=== PATIENT | male | born 1945 | race Caucasian/White ===

== ENCOUNTER 2021-04-09 12:14 | Observation (INO) ==
[2021-04-09] MEDS ORDERED: Isovue-370 500 ML BOTTLE IVP ONE (12:21)
[2021-04-09 13:20] LABS: Hemoglobin 11.8 g/dL (12.9-16.9)
[2021-04-09 13:22] LABS: Hematocrit 37.7 % (37.5-50.1); Immature Platelets 4.5 % (1.1-6.1); Mean Corpuscular HGB Conc 31.3 g/dL (31.6-35.5); Mean Corpuscular Hemoglobin 24.7 pg (28.0-33.3); Mean Platelet Volume 11.2 fL (9.4-12.4); Red Blood Count 4.77 M/mcL (4.19-5.50); Red Cell Distribution Width 19.2 % (11.5-14.5); White Blood Count 7.1 K/mcL (4.3-11.1)
[2021-04-09 13:33] LABS: INR 2.1; Prothrombin Time 23.4 Seconds (9.4-12.1)
[2021-04-09 13:36] LABS: Activated Partial Thrombo Time 34.4 Seconds (26.0-36.0)
[2021-04-09 13:42] LABS: BUN/Creatinine Ratio 16 (6-26); Blood Urea Nitrogen 15 mg/dL (8-23); Calcium 9.6 mg/dL (8.6-10.3); Carbon Dioxide 28 mEq/L (23-29); Chloride 103 mEq/L (98-107); Glucose 149 mg/dL (70-105); Osmolality,Calculated 288 (280-300); Potassium 3.6 mEq/L (3.5-5.1); Sodium 137 mEq/L (136-145); Troponin I < 0.03 ng/mL (< 0.04); eGFR For African Americans > 60 (> 60); eGFR For Non-African Americans > 60 (> 60)
[2021-04-09] MEDS ORDERED: Ondansetron ODT 4 MG TAB.RAPDIS SL PRN (16:30)
[2021-04-09] MEDS ORDERED: MOM Conc 10 ML UD.LIQ PO PRN (16:30)
[2021-04-09] MEDS ORDERED: Mag Hydrox/Al Hydrox/Simeth 30 ML UDC PO PRN (16:30)
[2021-04-09] MEDS ORDERED: Naloxone 0.4 MG/ML INJ IVP PRN (16:30)
[2021-04-09] MEDS ORDERED: Melatonin 3 MG TABLET PO PRN (16:30)
[2021-04-09] MEDS ORDERED: Dextrose Gel 15 GM/37.5 ML TUBE PO PRN ×2 (16:31)
[2021-04-09] MEDS ORDERED: *HR* Dextrose 50 % in Water (Vial) 50 ML VIAL IVP PRN (16:31)
[2021-04-09] MEDS ORDERED: D5% in Water 1,000 ML IVC PRN (16:31)
[2021-04-09] MEDS ORDERED: Gadolinium Contrast Agent (WT Based) IV PRN (16:43)
[2021-04-09] MEDS: Pyridostigmine Br 60 MG TABLET PO SCH ×2 (18:17→21:04)
[2021-04-09] MEDS ORDERED: Insulin LISPRO 300 UNITS/3 ML VIAL SUBQ SCH (21:00)
[2021-04-09] MEDS: Apixaban 5 MG TABLET PO SCH (21:03)
[2021-04-09] MEDS: Aspirin 81 MG TAB.CHEW PO SCH (21:03)
[2021-04-09] MEDS ORDERED: 0.9 % Sodium Chloride 1,000 ML IVC SCH (21:15)
[2021-04-10 03:36] VITALS: TEMP 97.7
[2021-04-10 03:49] LABS: INR 2.2; Prothrombin Time 24.5 Seconds (9.4-12.1)
[2021-04-10 04:02] LABS: Alanine Aminotransferase 18 Units/L (7-52); Albumin 3.2 g/dL (3.5-5.7); Albumin/Globulin Ratio 0.9 (1.1-2.2); Alkaline Phosphatase 120 Units/L (34-104); Aspartate Amino Transferase 12 Units/L (13-39); BUN/Creatinine Ratio 18 (6-26); Bilirubin,Total 0.7 mg/dL (0.3-1.0); Blood Urea Nitrogen 14 mg/dL (8-23); Calcium 9.4 mg/dL (8.6-10.3); Carbon Dioxide 27 mEq/L (23-29); Chloride 103 mEq/L (98-107); Chol/HDL Ratio 2.7 (0-4.9); Cholesterol 96 mg/dL (< 200); Globulin 3.6 g/dL (2.4-3.5); Glucose 96 mg/dL (70-105); HDL Cholesterol 36 mg/dL (40-59); LDL Cholesterol,Calculated 44 mg/dL (< 100); Osmolality,Calculated 284 (280-300); Potassium 3.4 mEq/L (3.5-5.1); Sodium 137 mEq/L (136-145); Total Protein 6.8 g/dL (6.4-8.9); Triglycerides 78 mg/dL (< 150); eGFR For African Americans > 60 (> 60); eGFR For Non-African Americans > 60 (> 60)
[2021-04-10 04:10] LABS: Troponin I < 0.03 ng/mL (< 0.04)
[2021-04-10 05:33] LABS: Estimated Average Glucose 148 mg/dl; Hemoglobin A1C 6.8 %
[2021-04-10 07:20] VITALS: BP 151/73; PULSE 58; O2SAT 97
[2021-04-10] MEDS ORDERED: Insulin LISPRO 300 UNITS/3 ML VIAL SUBQ SCH (07:30)
[2021-04-10] MEDS: Apixaban 5 MG TABLET PO SCH (08:21)
[2021-04-10] MEDS: Aspirin 81 MG TAB.CHEW PO SCH (08:21)
[2021-04-10] MEDS: Pyridostigmine Br 60 MG TABLET PO SCH (08:21)
== END 2021-04-10 13:56 | disposition home health service (06) ==
LOC: EMEROOARM 12:14 → 3BNU 12:14 → SUATTDRO 16:20 → 3BNU 17:06
PROVIDERS: ADMIT Family Medicine; ATTEND Registered Nurse

== ENCOUNTER 2021-07-11 13:46 | Inpatient (IN) ==
[2021-07-11] MEDS ORDERED: 0.9 % Sodium Chloride 1,000 ML IVC ONE (14:26)
[2021-07-11] MEDS ORDERED: Isovue-370 500 ML BOTTLE IVP ONE (14:29)
[2021-07-11 16:09] LABS: Basophils % 0.2 %; Hematocrit 37.6 % (37.5-50.1); Hemoglobin 12.4 g/dL (12.9-16.9); Immature Granulocytes % 1.4 % (0-4); Lymphocytes # 0.8 K/mcL (0.6-4.6); Lymphocytes % 13.1 %; Mean Corpuscular Hemoglobin 28.6 pg (28.0-33.3); Mean Corpuscular Volume 86.8 fL (83.0-100.0); Monocytes # 0.4 K/mcL (0.0-1.3); Monocytes % 6.1 %; Neutrophils # 5.1 K/mcL (1.6-8.9); Platelet Count 105 K/mcL (140-400); Red Blood Count 4.33 M/mcL (4.19-5.50); Red Cell Distribution Width 16.1 % (11.5-14.5); Segmented Neutrophils % 79.2 %; White Blood Count 6.4 K/mcL (4.3-11.1)
[2021-07-11 16:36] LABS: Alanine Aminotransferase 18 Units/L (7-52); Albumin 3.1 g/dL (3.5-5.7); Albumin/Globulin Ratio 0.9 (1.1-2.2); Alkaline Phosphatase 125 Units/L (34-104); Aspartate Amino Transferase 19 Units/L (13-39); BUN/Creatinine Ratio 16 (6-26); Bilirubin,Total 0.9 mg/dL (0.3-1.0); Blood Urea Nitrogen 19 mg/dL (8-23); Calcium 8.6 mg/dL (8.6-10.3); Carbon Dioxide 28 mEq/L (23-29); Chloride 99 mEq/L (98-107); Globulin 3.5 g/dL (2.4-3.5); Glucose 166 mg/dL (70-105); Osmolality,Calculated 286 (280-300); Potassium 3.1 mEq/L (3.5-5.1); Sodium 135 mEq/L (136-145); Total Protein 6.6 g/dL (6.4-8.9); Troponin I 0.04 ng/mL (< 0.04); eGFR For African Americans > 60 (> 60); eGFR For Non-African Americans 58 (> 60)
[2021-07-11] MEDS ORDERED: Potassium Chloride Elixir 20 MEQ/15 ML UDC PO ONE (16:38)
[2021-07-11] MEDS ORDERED: Piperacillin/Tazobactam 3.375 GM in 0.9 % Sodium Chloride Mini Bag 100 ML IVPB ONE (18:03)
[2021-07-11 18:18] LABS: Influenza A PCR Negative (Negative); Influenza B PCR Negative (Negative); Resp. Syncytial Virus PCR Negative (Negative)
[2021-07-11 18:20] LABS: SARS-CoV-2 by PCR (In House) Positive (Negative)
[2021-07-11 18:29] LABS: Bilirubin,Urine Negative (Negative); Blood,Urine Moderate (Negative); Clarity,Urine Turbid (Clear); Color,Urine Yellow (Yellow); Glucose,Urine (UA) Normal (Normal); Ketones,Urine Negative (Negative); Leukocyte Esterase,Urine Negative (Negative); Mucus,Urine Few per lpf (None-Few); Nitrite,Urine Negative (Negative); Protein,Urine 50 mg/dL (Neg-Trace); RBC,Urine 50-100 per hpf (0-3); Specific Gravity,Urine > 1.030 (1.010-1.025); Squamous Epithelial Cell,Urine Few per hpf (None-Few); Urobilinogen,Urine Normal (Normal)
[2021-07-11] MEDS ORDERED: Ondansetron 4 MG/2 ML VIAL IVP PRN (18:46)
[2021-07-11] MEDS ORDERED: Acetaminophen 325 MG TABLET PO PRN (18:46)
[2021-07-11] MEDS ORDERED: Naloxone 0.4 MG/ML INJ IVP PRN (18:46)
[2021-07-11] MEDS ORDERED: 0.9 % Sodium Chloride 1,000 ML IVC SCH (19:45)
[2021-07-11] MEDS ORDERED: Dextrose Gel 15 GM/37.5 ML TUBE PO PRN ×2 (20:23)
[2021-07-11] MEDS ORDERED: D5% in Water 1,000 ML IVC PRN (20:23)
[2021-07-11] MEDS ORDERED: *HR* Dextrose 50 % in Water (Syg) 50 ML SYRINGE IVP PRN (20:23)
[2021-07-11] MEDS ORDERED: Perflutren Lipid Microsphere 1.3 ML in 0.9 % Sodium Chloride 8.7 ML IVP PRN (20:56)
[2021-07-11] MEDS ORDERED: Apixaban 5 MG TABLET PO SCH (21:00)
[2021-07-11] MEDS: Pyridostigmine Br 60 MG TABLET PO SCH (21:59)
[2021-07-11] MEDS: carvediloL 25 MG TABLET PO SCH (21:59)
[2021-07-11] MEDS: Pantoprazole 40 MG VIAL IVP SCH (21:59)
[2021-07-12] MEDS: Insulin LISPRO 300 UNITS/3 ML VIAL SUBQ SCH ×5 (00:24→23:19)
[2021-07-12 01:34] LABS: Hematocrit 34.6 % (37.5-50.1); Hemoglobin 11.3 g/dL (12.9-16.9); Immature Platelets 4.8 % (1.1-6.1); Mean Corpuscular HGB Conc 32.7 g/dL (31.6-35.5); Mean Corpuscular Hemoglobin 28.3 pg (28.0-33.3); Mean Corpuscular Volume 86.7 fL (83.0-100.0); Mean Platelet Volume 11.2 fL (9.4-12.4); Red Blood Count 3.99 M/mcL (4.19-5.50); Red Cell Distribution Width 16.3 % (11.5-14.5); White Blood Count 5.4 K/mcL (4.3-11.1)
[2021-07-12 01:52] LABS: Alanine Aminotransferase 19 Units/L (7-52); Albumin 2.7 g/dL (3.5-5.7); Albumin/Globulin Ratio 0.8 (1.1-2.2); Alkaline Phosphatase 125 Units/L (34-104); Aspartate Amino Transferase 23 Units/L (13-39); BUN/Creatinine Ratio 19 (6-26); Bilirubin,Total 0.8 mg/dL (0.3-1.0); Blood Urea Nitrogen 21 mg/dL (8-23); Carbon Dioxide 25 mEq/L (23-29); Chloride 104 mEq/L (98-107); Globulin 3.2 g/dL (2.4-3.5); Glucose 136 mg/dL (70-105); Osmolality,Calculated 289 (280-300); Potassium 3.1 mEq/L (3.5-5.1); Sodium 137 mEq/L (136-145); Total Protein 5.9 g/dL (6.4-8.9); eGFR For African Americans > 60 (> 60); eGFR For Non-African Americans > 60 (> 60)
[2021-07-12 01:57] LABS: C-Reactive Protein 221 mg/L (Less than 10); Lactate Dehydrogenase 140 Units/L (140-271)
[2021-07-12 02:30] LABS: Ferritin 333 ng/mL (20-250)
[2021-07-12] MEDS: Piperacillin/Tazobactam 3.375 GM in 0.9 % Sodium Chloride Mini Bag 100 ML IVPB SCH ×3 (04:15→20:27)
[2021-07-12] MEDS: Pantoprazole 40 MG VIAL IVP SCH ×2 (05:06→16:44)
[2021-07-12] MEDS: allopurinoL 100 MG TABLET PO SCH (08:57)
[2021-07-12] MEDS: Pyridostigmine Br 60 MG TABLET PO SCH ×3 (08:58→20:26)
[2021-07-12] MEDS: carvediloL 25 MG TABLET PO SCH ×2 (08:58→16:44)
[2021-07-12] MEDS: Aspirin 81 MG TAB.CHEW PO SCH (08:58)
[2021-07-12] MEDS: Ketorolac 30 MG/ML VIAL IVP SCH ×2 (10:35→16:44)
[2021-07-12] MEDS ORDERED: Heparin 25,000UNIT/250ML 1/2NS 25,000 UNIT/250 ML IV.SOLN IVC SCH ×2 (11:30→11:45)
[2021-07-12 13:02] LABS: Hematocrit 33.6 % (37.5-50.1); Hemoglobin 10.8 g/dL (12.9-16.9); Mean Corpuscular HGB Conc 32.1 g/dL (31.6-35.5); Mean Platelet Volume 12.1 fL (9.4-12.4); Platelet Count 114 K/mcL (140-400); Red Blood Count 3.86 M/mcL (4.19-5.50); Red Cell Distribution Width 16.4 % (11.5-14.5); White Blood Count 5.3 K/mcL (4.3-11.1)
[2021-07-12 13:04] LABS: Hematocrit 33.4 % (37.5-50.1); Hemoglobin 10.8 g/dL (12.9-16.9); INR 2.1; INR 2.2; Immature Platelets 5.6 % (1.1-6.1); Mean Corpuscular HGB Conc 32.3 g/dL (31.6-35.5); Mean Corpuscular Hemoglobin 28.1 pg (28.0-33.3); Prothrombin Time 23.5 Seconds (9.4-12.1); Prothrombin Time 24.9 Seconds (9.4-12.1); Red Blood Count 3.84 M/mcL (4.19-5.50); Red Cell Distribution Width 16.4 % (11.5-14.5); White Blood Count 5.2 K/mcL (4.3-11.1)
[2021-07-12 13:11] LABS: Heparin anti-factor XA UFH > 2.00 IU/mL (0.30-0.70)
[2021-07-12] MEDS ORDERED: D5% in Water 1,000 ML IVC SCH (17:30)
[2021-07-13] MEDS: Ketorolac 30 MG/ML VIAL IVP SCH ×2 (00:29→05:12)
[2021-07-13 03:22] LABS: Basophils % 0.2 %; Hemoglobin 10.2 g/dL (12.9-16.9); Mean Corpuscular Volume 89.4 fL (83.0-100.0)
[2021-07-13 03:24] LABS: Hematocrit 32.1 % (37.5-50.1); Immature Granulocytes % 0.5 % (0-4); Lymphocytes # 0.9 K/mcL (0.6-4.6); Lymphocytes % 19.6 %; Mean Corpuscular HGB Conc 31.8 g/dL (31.6-35.5); Mean Corpuscular Hemoglobin 28.4 pg (28.0-33.3); Monocytes # 0.3 K/mcL (0.0-1.3); Monocytes % 6.1 %; Red Blood Count 3.59 M/mcL (4.19-5.50); Red Cell Distribution Width 16.5 % (11.5-14.5); Segmented Neutrophils % 73.6 %; White Blood Count 4.4 K/mcL (4.3-11.1)
[2021-07-13 03:30] LABS: Neutrophils # 3.2 K/mcL (1.6-8.9); Platelet Count 97 K/mcL (140-400)
[2021-07-13 03:40] LABS: Magnesium 1.5 mg/dL (1.6-2.6); Phosphorous 2.3 mg/dL (2.7-4.5)
[2021-07-13] MEDS: Pantoprazole 40 MG VIAL IVP SCH ×2 (04:41→18:35)
[2021-07-13] MEDS: Piperacillin/Tazobactam 3.375 GM in 0.9 % Sodium Chloride Mini Bag 100 ML IVPB SCH ×3 (04:42→21:10)
[2021-07-13] MEDS: Insulin LISPRO 300 UNITS/3 ML VIAL SUBQ SCH ×3 (05:51→18:43)
[2021-07-13] MEDS: Pyridostigmine Br 60 MG TABLET PO SCH ×3 (08:03→21:03)
[2021-07-13] MEDS: Aspirin 81 MG TAB.CHEW PO SCH (08:03)
[2021-07-13] MEDS: carvediloL 25 MG TABLET PO SCH ×2 (08:03→16:59)
[2021-07-13] MEDS: allopurinoL 100 MG TABLET PO SCH (08:04)
[2021-07-13] MEDS ORDERED: Potassium Phosphate 44 MEQ in 0.9 % Sodium Chloride 250 ML IVPB ONE (08:18)
[2021-07-13] MEDS: D5% in Water 1,000 ML IVC SCH ×2 (11:23→21:05)
[2021-07-13] MEDS ORDERED: Heparin 25,000UNIT/250ML 1/2NS 25,000 UNIT/250 ML IV.SOLN IVC SCH (14:30)
[2021-07-13] MEDS: Apixaban 5 MG TABLET PO SCH (21:03)
[2021-07-14 01:23] LABS: Basophils % 0.3 %; Eosinophils % 0.6 %; Hematocrit 31.7 % (37.5-50.1); Hemoglobin 10.2 g/dL (12.9-16.9); Immature Granulocytes % 0.3 % (0-4); Immature Platelets 4.8 % (1.1-6.1); Lymphocytes # 0.7 K/mcL (0.6-4.6); Lymphocytes % 22.5 %; Mean Corpuscular HGB Conc 32.2 g/dL (31.6-35.5); Mean Corpuscular Hemoglobin 28.4 pg (28.0-33.3); Mean Corpuscular Volume 88.3 fL (83.0-100.0); Mean Platelet Volume 11.6 fL (9.4-12.4); Monocytes # 0.2 K/mcL (0.0-1.3); Neutrophils # 2.2 K/mcL (1.6-8.9); Platelet Count 103 K/mcL (140-400); Red Blood Count 3.59 M/mcL (4.19-5.50); Red Cell Distribution Width 16.7 % (11.5-14.5); Segmented Neutrophils % 69.3 %; White Blood Count 3.2 K/mcL (4.3-11.1)
[2021-07-14] MEDS: Insulin LISPRO 300 UNITS/3 ML VIAL SUBQ SCH ×5 (01:30→23:43)
[2021-07-14 02:01] LABS: BUN/Creatinine Ratio 24 (6-26); Blood Urea Nitrogen 33 mg/dL (8-23); Carbon Dioxide 22 mEq/L (23-29); Chloride 106 mEq/L (98-107); Glucose 122 mg/dL (70-105); Magnesium 1.9 mg/dL (1.6-2.6); Osmolality,Calculated 295 (280-300); Phosphorous 2.5 mg/dL (2.7-4.5); Potassium 3.4 mEq/L (3.5-5.1); Sodium 138 mEq/L (136-145); eGFR For African Americans > 60 (> 60); eGFR For Non-African Americans 51 (> 60)
[2021-07-14] MEDS: Pantoprazole 40 MG VIAL IVP SCH (05:30)
[2021-07-14] MEDS: Piperacillin/Tazobactam 3.375 GM in 0.9 % Sodium Chloride Mini Bag 100 ML IVPB SCH ×3 (05:30→21:35)
[2021-07-14] MEDS: Aspirin 81 MG TAB.CHEW PO SCH (10:11)
[2021-07-14] MEDS: Pyridostigmine Br 60 MG TABLET PO SCH ×3 (10:11→21:34)
[2021-07-14] MEDS: allopurinoL 100 MG TABLET PO SCH (10:12)
[2021-07-14] MEDS: Apixaban 5 MG TABLET PO SCH ×2 (10:12→21:34)
[2021-07-14] MEDS: carvediloL 25 MG TABLET PO SCH ×2 (10:23→16:15)
[2021-07-14] MEDS: D5% in Water 1,000 ML IVC SCH (14:10)
[2021-07-14 17:53] LABS: C.difficile Toxin A/B Gene PCR Not detected (Not detect); Campylobacter by PCR Not detected (Not detect); Enteroaggregative E.coli(EAEC) Not detected (Not detect); Enteropathogenic E.coli(EPEC) Not detected (Not detect); Enterotoxigenic E.coli (ETEC) Not detected (Not detect); Plesiomonas shigelloides PCR Not detected (Not detect); Salmonella PCR Not detected (Not detect); Shigalike tox-prod E coli STEC Not detected (Not detect); Vibrio PCR Not detected (Not detect); Vibrio cholerae PCR Not detected (Not detect); Yersinia enterocolitica PCR Not detected (Not detect)
[2021-07-14 17:54] LABS: Adenovirus F 40/41 PCR Not detected (Not detect); Astrovirus PCR Not detected (Not detect); Cryptosporidium by PCR Not detected (Not detect); Cyclospora cayetanensis PCR Not detected (Not detect); E. coli O157 by PCR Not detected (Not detect); Entamoeba histolytica PCR Not detected (Not detect); Giardia lamblia PCR Not detected (Not detect); Norovirus GI/GII PCR Not detected (Not detect); Rotavirus A PCR Not detected (Not detect); Sapovirus PCR Not detected (Not detect); Shig/EnteroinvasiveE coli EIEC Not detected (Not detect)
[2021-07-15] MEDS: D5% in Water 1,000 ML IVC SCH (01:28)
[2021-07-15 05:21] LABS: Red Cell Distribution Width 16.4 % (11.5-14.5)
[2021-07-15 05:22] LABS: Basophils % 0.4 %; Eosinophils # 0.1 K/mcL (0.0-0.6); Eosinophils % 2.8 %; Hematocrit 28.8 % (37.5-50.1); Hemoglobin 9.4 g/dL (12.9-16.9); Immature Granulocytes % 0.8 % (0-4); Immature Platelets 5.7 % (1.1-6.1); Lymphocytes # 0.7 K/mcL (0.6-4.6); Lymphocytes % 28.6 %; Mean Corpuscular HGB Conc 32.6 g/dL (31.6-35.5); Mean Corpuscular Hemoglobin 28.4 pg (28.0-33.3); Mean Platelet Volume 11.1 fL (9.4-12.4); Monocytes # 0.2 K/mcL (0.0-1.3); Monocytes % 8.3 %; Neutrophils # 1.5 K/mcL (1.6-8.9); Platelet Count 113 K/mcL (140-400); Red Blood Count 3.31 M/mcL (4.19-5.50); Segmented Neutrophils % 59.1 %; White Blood Count 2.5 K/mcL (4.3-11.1)
[2021-07-15 05:37] LABS: Magnesium 1.8 mg/dL (1.6-2.6); Phosphorous 1.9 mg/dL (2.7-4.5)
[2021-07-15 05:43] LABS: Alanine Aminotransferase 26 Units/L (7-52); Albumin 2.4 g/dL (3.5-5.7); Albumin/Globulin Ratio 0.9 (1.1-2.2); Alkaline Phosphatase 144 Units/L (34-104); Aspartate Amino Transferase 31 Units/L (13-39); BUN/Creatinine Ratio 24 (6-26); Bilirubin,Total 0.6 mg/dL (0.3-1.0); Blood Urea Nitrogen 27 mg/dL (8-23); Calcium 7.6 mg/dL (8.6-10.3); Carbon Dioxide 23 mEq/L (23-29); Chloride 106 mEq/L (98-107); Globulin 2.8 g/dL (2.4-3.5); Glucose 123 mg/dL (70-105); Osmolality,Calculated 286 (280-300); Potassium 2.9 mEq/L (3.5-5.1); Sodium 135 mEq/L (136-145); Total Protein 5.2 g/dL (6.4-8.9); eGFR For African Americans > 60 (> 60); eGFR For Non-African Americans > 60 (> 60)
[2021-07-15] MEDS: Piperacillin/Tazobactam 3.375 GM in 0.9 % Sodium Chloride Mini Bag 100 ML IVPB SCH ×3 (06:00→22:26)
[2021-07-15] MEDS: Insulin LISPRO 300 UNITS/3 ML VIAL SUBQ SCH ×3 (06:05→16:57)
[2021-07-15] MEDS: Aspirin 81 MG TAB.CHEW PO SCH (10:05)
[2021-07-15] MEDS: allopurinoL 100 MG TABLET PO SCH (10:05)
[2021-07-15] MEDS: *HR* SitaGLIPtin 100 MG TABLET PO SCH (10:05)
[2021-07-15] MEDS: Pyridostigmine Br 60 MG TABLET PO SCH ×3 (10:05→23:18)
[2021-07-15] MEDS: Cholecalciferol (D-3) 1,000 UNIT (25MCG) TABLET PO SCH (10:05)
[2021-07-15] MEDS: Apixaban 5 MG TABLET PO SCH ×2 (10:05→22:25)
[2021-07-15] MEDS: carvediloL 25 MG TABLET PO SCH ×2 (10:08→16:12)
[2021-07-16] MEDS: Insulin LISPRO 300 UNITS/3 ML VIAL SUBQ SCH ×5 (03:09→23:41)
[2021-07-16] MEDS: Piperacillin/Tazobactam 3.375 GM in 0.9 % Sodium Chloride Mini Bag 100 ML IVPB SCH ×3 (04:31→20:21)
[2021-07-16 06:50] LABS: Basophils % 0.3 %; Eosinophils # 0.1 K/mcL (0.0-0.6); Eosinophils % 4.5 %; Hematocrit 29.5 % (37.5-50.1); Hemoglobin 9.5 g/dL (12.9-16.9); Immature Granulocytes % 0.6 % (0-4); Immature Platelets 3.9 % (1.1-6.1); Lymphocytes # 0.8 K/mcL (0.6-4.6); Lymphocytes % 25.2 %; Mean Corpuscular HGB Conc 32.2 g/dL (31.6-35.5); Mean Corpuscular Hemoglobin 28.4 pg (28.0-33.3); Mean Corpuscular Volume 88.1 fL (83.0-100.0); Mean Platelet Volume 11.6 fL (9.4-12.4); Monocytes # 0.3 K/mcL (0.0-1.3); Monocytes % 8.1 %; Neutrophils # 1.9 K/mcL (1.6-8.9); Platelet Count 141 K/mcL (140-400); Red Blood Count 3.35 M/mcL (4.19-5.50); Red Cell Distribution Width 16.3 % (11.5-14.5); Segmented Neutrophils % 61.3 %; White Blood Count 3.1 K/mcL (4.3-11.1)
[2021-07-16 07:05] LABS: Alanine Aminotransferase 23 Units/L (7-52); Albumin 2.5 g/dL (3.5-5.7); Albumin/Globulin Ratio 0.8 (1.1-2.2); Alkaline Phosphatase 167 Units/L (34-104); Aspartate Amino Transferase 28 Units/L (13-39); BUN/Creatinine Ratio 22 (6-26); Bilirubin,Total 0.7 mg/dL (0.3-1.0); Blood Urea Nitrogen 22 mg/dL (8-23); Calcium 7.8 mg/dL (8.6-10.3); Carbon Dioxide 24 mEq/L (23-29); Chloride 108 mEq/L (98-107); Glucose 102 mg/dL (70-105); Magnesium 1.8 mg/dL (1.6-2.6); Osmolality,Calculated 288 (280-300); Phosphorous 2.1 mg/dL (2.7-4.5); Potassium 3.1 mEq/L (3.5-5.1); Sodium 137 mEq/L (136-145); Total Protein 5.5 g/dL (6.4-8.9); eGFR For African Americans > 60 (> 60); eGFR For Non-African Americans > 60 (> 60)
[2021-07-16] MEDS: *HR* SitaGLIPtin 100 MG TABLET PO SCH (09:29)
[2021-07-16] MEDS: carvediloL 25 MG TABLET PO SCH ×2 (09:29→15:50)
[2021-07-16] MEDS: Pyridostigmine Br 60 MG TABLET PO SCH ×3 (09:29→20:21)
[2021-07-16] MEDS: Aspirin 81 MG TAB.CHEW PO SCH (09:29)
[2021-07-16] MEDS: allopurinoL 100 MG TABLET PO SCH (09:29)
[2021-07-16] MEDS: Cholecalciferol (D-3) 1,000 UNIT (25MCG) TABLET PO SCH (09:29)
[2021-07-16] MEDS: Apixaban 5 MG TABLET PO SCH ×2 (09:29→20:21)
[2021-07-17] MEDS: Piperacillin/Tazobactam 3.375 GM in 0.9 % Sodium Chloride Mini Bag 100 ML IVPB SCH (05:24)
[2021-07-17] MEDS: Insulin LISPRO 300 UNITS/3 ML VIAL SUBQ SCH ×3 (05:31→17:48)
[2021-07-17 07:07] LABS: Basophils % 0.3 %; Eosinophils # 0.2 K/mcL (0.0-0.6); Hematocrit 29.6 % (37.5-50.1); Hemoglobin 9.5 g/dL (12.9-16.9); Immature Granulocytes % 0.7 % (0-4); Lymphocytes # 0.8 K/mcL (0.6-4.6); Mean Corpuscular HGB Conc 32.1 g/dL (31.6-35.5); Mean Corpuscular Hemoglobin 28.8 pg (28.0-33.3); Mean Corpuscular Volume 89.7 fL (83.0-100.0); Mean Platelet Volume 10.6 fL (9.4-12.4); Monocytes # 0.3 K/mcL (0.0-1.3); Monocytes % 9.3 %; Neutrophils # 1.8 K/mcL (1.6-8.9); Platelet Count 153 K/mcL (140-400); Red Cell Distribution Width 16.5 % (11.5-14.5); Segmented Neutrophils % 58.7 %
[2021-07-17 07:26] LABS: Magnesium 1.8 mg/dL (1.6-2.6)
[2021-07-17] MEDS: Apixaban 5 MG TABLET PO SCH ×2 (09:21→20:01)
[2021-07-17] MEDS: Cholecalciferol (D-3) 1,000 UNIT (25MCG) TABLET PO SCH (09:22)
[2021-07-17] MEDS: carvediloL 25 MG TABLET PO SCH ×2 (09:22→16:14)
[2021-07-17] MEDS: *HR* SitaGLIPtin 100 MG TABLET PO SCH (09:22)
[2021-07-17] MEDS: Aspirin 81 MG TAB.CHEW PO SCH (09:22)
[2021-07-17] MEDS: allopurinoL 100 MG TABLET PO SCH (09:22)
[2021-07-17] MEDS: Pyridostigmine Br 60 MG TABLET PO SCH ×3 (09:22→20:02)
[2021-07-18] MEDS: Insulin LISPRO 300 UNITS/3 ML VIAL SUBQ SCH ×4 (01:03→16:18)
[2021-07-18 01:13] LABS: Basophils % 0.3 %; Eosinophils # 0.2 K/mcL (0.0-0.6); Eosinophils % 4.9 %; Hematocrit 28.5 % (37.5-50.1); Hemoglobin 8.9 g/dL (12.9-16.9); Immature Granulocytes % 0.3 % (0-4); Lymphocytes # 0.9 K/mcL (0.6-4.6); Lymphocytes % 25.8 %; Mean Corpuscular HGB Conc 31.2 g/dL (31.6-35.5); Mean Corpuscular Volume 89.6 fL (83.0-100.0); Mean Platelet Volume 11.1 fL (9.4-12.4); Monocytes # 0.3 K/mcL (0.0-1.3); Monocytes % 8.8 %; Platelet Count 188 K/mcL (140-400); Red Blood Count 3.18 M/mcL (4.19-5.50); Red Cell Distribution Width 16.3 % (11.5-14.5); Segmented Neutrophils % 59.9 %; White Blood Count 3.3 K/mcL (4.3-11.1)
[2021-07-18 01:25] LABS: Magnesium 1.8 mg/dL (1.6-2.6); Phosphorous 2.1 mg/dL (2.7-4.5)
[2021-07-18] MEDS: carvediloL 25 MG TABLET PO SCH ×2 (08:19→16:18)
[2021-07-18] MEDS: Cholecalciferol (D-3) 1,000 UNIT (25MCG) TABLET PO SCH (08:19)
[2021-07-18] MEDS: allopurinoL 100 MG TABLET PO SCH (08:20)
[2021-07-18] MEDS: *HR* SitaGLIPtin 100 MG TABLET PO SCH (08:20)
[2021-07-18] MEDS: Aspirin 81 MG TAB.CHEW PO SCH (08:20)
[2021-07-18] MEDS: Apixaban 5 MG TABLET PO SCH ×2 (08:20→21:33)
[2021-07-18] MEDS: Pyridostigmine Br 60 MG TABLET PO SCH ×3 (08:22→21:33)
[2021-07-18] MEDS: Pantoprazole 40 MG VIAL IVP SCH (16:37)
[2021-07-19 01:24] LABS: Hematocrit 29.8 % (37.5-50.1); Hemoglobin 9.2 g/dL (12.9-16.9); Mean Corpuscular HGB Conc 30.9 g/dL (31.6-35.5); Mean Corpuscular Hemoglobin 28.8 pg (28.0-33.3); Mean Corpuscular Volume 93.1 fL (83.0-100.0); Mean Platelet Volume 10.3 fL (9.4-12.4); Platelet Count 184 K/mcL (140-400); Red Cell Distribution Width 16.3 % (11.5-14.5); White Blood Count 3.8 K/mcL (4.3-11.1)
[2021-07-19 01:33] LABS: BUN/Creatinine Ratio 22 (6-26); Blood Urea Nitrogen 17 mg/dL (8-23); Calcium 8.1 mg/dL (8.6-10.3); Carbon Dioxide 20 mEq/L (23-29); Chloride 111 mEq/L (98-107); Glucose 93 mg/dL (70-105); Osmolality,Calculated 297 (280-300); Potassium 3.9 mEq/L (3.5-5.1); Sodium 143 mEq/L (136-145); eGFR For African Americans > 60 (> 60); eGFR For Non-African Americans > 60 (> 60)
[2021-07-19] MEDS: Pantoprazole 40 MG VIAL IVP SCH ×2 (05:54→17:32)
[2021-07-19] MEDS: Insulin LISPRO 300 UNITS/3 ML VIAL SUBQ SCH ×5 (06:00→23:54)
[2021-07-19] MEDS: Aspirin 81 MG TAB.CHEW PO SCH (08:31)
[2021-07-19] MEDS: Pyridostigmine Br 60 MG TABLET PO SCH ×3 (08:31→19:30)
[2021-07-19] MEDS: *HR* SitaGLIPtin 100 MG TABLET PO SCH (08:31)
[2021-07-19] MEDS: Apixaban 5 MG TABLET PO SCH ×2 (08:31→19:30)
[2021-07-19] MEDS: Cholecalciferol (D-3) 1,000 UNIT (25MCG) TABLET PO SCH (08:32)
[2021-07-19] MEDS: carvediloL 25 MG TABLET PO SCH ×2 (08:32→17:32)
[2021-07-19] MEDS: allopurinoL 100 MG TABLET PO SCH (08:32)
[2021-07-20] MEDS: Insulin LISPRO 300 UNITS/3 ML VIAL SUBQ SCH ×4 (05:30→23:37)
[2021-07-20] MEDS: Pantoprazole 40 MG VIAL IVP SCH ×2 (05:32→16:36)
[2021-07-20] MEDS: Cholecalciferol (D-3) 1,000 UNIT (25MCG) TABLET PO SCH (07:56)
[2021-07-20] MEDS: Aspirin 81 MG TAB.CHEW PO SCH (07:56)
[2021-07-20] MEDS: Pyridostigmine Br 60 MG TABLET PO SCH ×3 (07:57→21:33)
[2021-07-20] MEDS: Apixaban 5 MG TABLET PO SCH ×2 (07:57→21:33)
[2021-07-20] MEDS: carvediloL 25 MG TABLET PO SCH ×2 (07:57→16:35)
[2021-07-20] MEDS: *HR* SitaGLIPtin 100 MG TABLET PO SCH (07:57)
[2021-07-20] MEDS: allopurinoL 100 MG TABLET PO SCH (07:57)
[2021-07-21] MEDS: Insulin LISPRO 300 UNITS/3 ML VIAL SUBQ SCH ×3 (05:56→17:41)
[2021-07-21] MEDS: Pantoprazole 40 MG VIAL IVP SCH ×2 (06:03→17:00)
[2021-07-21] MEDS: Aspirin 81 MG TAB.CHEW PO SCH (10:15)
[2021-07-21] MEDS: Apixaban 5 MG TABLET PO SCH ×2 (10:15→20:30)
[2021-07-21] MEDS: *HR* SitaGLIPtin 100 MG TABLET PO SCH (10:16)
[2021-07-21] MEDS: Cholecalciferol (D-3) 1,000 UNIT (25MCG) TABLET PO SCH (10:16)
[2021-07-21] MEDS: Pyridostigmine Br 60 MG TABLET PO SCH ×3 (10:16→20:30)
[2021-07-21] MEDS: allopurinoL 100 MG TABLET PO SCH (10:16)
[2021-07-21] MEDS: carvediloL 25 MG TABLET PO SCH ×2 (10:33→17:00)
[2021-07-22] MEDS: Insulin LISPRO 300 UNITS/3 ML VIAL SUBQ SCH ×3 (01:49→13:21)
[2021-07-22] MEDS: Pantoprazole 40 MG VIAL IVP SCH (05:42)
[2021-07-22 06:54] VITALS: O2SAT 98
[2021-07-22] MEDS: Pyridostigmine Br 60 MG TABLET PO SCH ×2 (13:33→13:50)
[2021-07-22] MEDS: carvediloL 25 MG TABLET PO SCH (13:48)
[2021-07-22] MEDS: Aspirin 81 MG TAB.CHEW PO SCH (13:48)
[2021-07-22] MEDS: Apixaban 5 MG TABLET PO SCH (13:49)
[2021-07-22] MEDS: *HR* SitaGLIPtin 100 MG TABLET PO SCH (13:50)
[2021-07-22] MEDS: allopurinoL 100 MG TABLET PO SCH (13:50)
[2021-07-22] MEDS: Cholecalciferol (D-3) 1,000 UNIT (25MCG) TABLET PO SCH (13:50)
[2021-07-22 14:48] VITALS: BP 150/81; PULSE 74; TEMP 97.6
== END 2021-07-22 16:18 | DRG 177 ==
LOC: 3BNU 13:46 → EMEROOARM 13:46 → 3BNU 18:33 → SUATTDRO 07-13 15:06
PROVIDERS: ADMIT Internal Medicine; ATTEND Internal Medicine

== ENCOUNTER 2021-08-01 11:57 | Observation (INO) ==
[2021-08-01] MEDS ORDERED: Acetaminophen 325 MG TABLET PO PRN (14:47)
[2021-08-01] MEDS ORDERED: Naloxone 0.4 MG/ML INJ IVP PRN (14:47)
[2021-08-01] MEDS ORDERED: Melatonin 3 MG TABLET PO PRN (14:47)
[2021-08-01] MEDS ORDERED: Ondansetron 4 MG/2 ML VIAL IVP PRN (14:47)
[2021-08-01] MEDS: carvediloL 25 MG TABLET PO SCH (17:12)
[2021-08-01] MEDS: Pyridostigmine Br 60 MG TABLET PO SCH ×2 (17:12→21:18)
[2021-08-02 02:04] LABS: Hematocrit 26.9 % (37.5-50.1); Hemoglobin 8.7 g/dL (12.9-16.9); Mean Corpuscular HGB Conc 32.3 g/dL (31.6-35.5); Mean Corpuscular Hemoglobin 30.5 pg (28.0-33.3); Mean Corpuscular Volume 94.4 fL (83.0-100.0); Mean Platelet Volume 12.3 fL (9.4-12.4); Platelet Count 124 K/mcL (140-400); Red Blood Count 2.85 M/mcL (4.19-5.50); Red Cell Distribution Width 15.9 % (11.5-14.5); White Blood Count 3.2 K/mcL (4.3-11.1)
[2021-08-02 02:30] LABS: BUN/Creatinine Ratio 10 (6-26); Blood Urea Nitrogen 7 mg/dL (8-23); Calcium 8.3 mg/dL (8.6-10.3); Carbon Dioxide 22 mEq/L (23-29); Chloride 109 mEq/L (98-107); Glucose 95 mg/dL (70-105); Magnesium 1.5 mg/dL (1.6-2.6); Osmolality,Calculated 280 (280-300); Phosphorous 2.3 mg/dL (2.7-4.5); Potassium 4.1 mEq/L (3.5-5.1); Sodium 136 mEq/L (136-145); eGFR For African Americans > 60 (> 60); eGFR For Non-African Americans > 60 (> 60)
[2021-08-02] MEDS: carvediloL 25 MG TABLET PO SCH ×2 (08:16→17:04)
[2021-08-02] MEDS: Aspirin 81 MG TAB.CHEW PO SCH (08:17)
[2021-08-02] MEDS: allopurinoL 100 MG TABLET PO SCH (08:17)
[2021-08-02] MEDS: amLODIPine 5 MG TABLET PO SCH (08:17)
[2021-08-02] MEDS: Pyridostigmine Br 60 MG TABLET PO SCH ×4 (08:17→20:33)
[2021-08-02] MEDS ORDERED: Lidocaine -MPF 2% 5 ML VIAL ONE ×2 (12:01)
[2021-08-02] MEDS ORDERED: *HR* Propofol 200 MG/20 ML VIAL IVP ONE ×2 (12:30→12:47)
[2021-08-02] MEDS: Apixaban 5 MG TABLET PO SCH (20:33)
[2021-08-03 09:28] LABS: Blood Urea Nitrogen 7 mg/dL (8-23); Calcium 8.5 mg/dL (8.6-10.3); Carbon Dioxide 23 mEq/L (23-29); Chloride 106 mEq/L (98-107); Glucose 74 mg/dL (70-105); Magnesium 1.7 mg/dL (1.6-2.6); Osmolality,Calculated 281 (280-300); Phosphorous 2.7 mg/dL (2.7-4.5); Sodium 137 mEq/L (136-145)
[2021-08-03] MEDS: Aspirin 81 MG TAB.CHEW PO SCH (10:12)
[2021-08-03] MEDS: amLODIPine 5 MG TABLET PO SCH (10:13)
[2021-08-03] MEDS: Apixaban 5 MG TABLET PO SCH (10:13)
[2021-08-03] MEDS: allopurinoL 100 MG TABLET PO SCH (10:14)
[2021-08-03] MEDS: Pyridostigmine Br 60 MG TABLET PO SCH (10:14)
[2021-08-03 10:17] LABS: BUN/Creatinine Ratio 10 (6-26); eGFR For African Americans > 60 (> 60); eGFR For Non-African Americans > 60 (> 60)
[2021-08-03] MEDS: carvediloL 25 MG TABLET PO SCH (10:17)
[2021-08-03] MEDS ORDERED: E-Z-PAQUE (BARIUM SULF) SUSP 1 BOTTLE PO ONE (11:28)
[2021-08-03] MEDS ORDERED: E-Z-HD (BARIUM SULF) SUSPENSION PO ONE (11:28)
[2021-08-03 13:38] LABS: Adenovirus Not Detected (Not Detect); Coronavirus 229E Not Detected (Not Detect); Coronavirus HKU1 Not Detected (Not Detect); Coronavirus NL63 Not Detected (Not Detect); Coronavirus OC43 Not Detected (Not Detect)
[2021-08-03 13:41] LABS: Bordetella Pertussis Not Detected (Not Detect); Chlamydophila pneumoniae Not Detected (Not Detect); Human Metapneumovirus Not Detected (Not Detect); Human Rhinovirus/Enterovirus Not Detected (Not Detect); Influenza A Subtype 2009 H1 Not Detected (Not Detect); Influenza B Not Detected (Not Detect); Mycoplasma pneumoniae Not Detected (Not Detect); Parainfluenza Virus 1 Not Detected (Not Detect); Parainfluenza Virus 2 Not Detected (Not Detect); Parainfluenza Virus 3 Not Detected (Not Detect); Parainfluenza Virus 4 Not Detected (Not Detect); Respiratory Syncytial Virus Not Detected (Not Detect); SARS-CoV-2 DETECTED (Not Detect)
[2021-08-03 14:38] VITALS: BP 136/63; PULSE 63; TEMP 98.4; O2SAT 95
== END 2021-08-03 16:44 | disposition other institution (70) ==
LOC: 3ANU → SUATTDRO 14:20
PROVIDERS: ADMIT Internal Medicine; ATTEND Internal Medicine

== ENCOUNTER 2021-12-06 18:16 | Inpatient (IN) ==
[2021-12-06] MEDS ORDERED: Pantoprazole 40 MG VIAL IVP ONE (19:04)
[2021-12-06 19:06] LABS: INR 2.1; Prothrombin Time 23.1 Seconds (9.4-12.1)
[2021-12-06 19:08] LABS: Activated Partial Thrombo Time 36.1 Seconds (26.0-36.0)
[2021-12-06 19:10] LABS: Basophils % 0.2 %; Eosinophils # 0.2 K/mcL (0.0-0.6); Eosinophils % 3.4 %; Hematocrit 21.8 % (37.5-50.1); Hemoglobin 6.7 g/dL (12.9-16.9); Immature Granulocytes % 0.2 % (0-4); Immature Platelets 4.8 % (1.1-6.1); Lymphocytes # 0.8 K/mcL (0.6-4.6); Lymphocytes % 16.5 %; Mean Corpuscular HGB Conc 30.7 g/dL (31.6-35.5); Mean Corpuscular Hemoglobin 26.7 pg (28.0-33.3); Mean Corpuscular Volume 86.9 fL (83.0-100.0); Mean Platelet Volume 11.7 fL (9.4-12.4); Monocytes # 0.4 K/mcL (0.0-1.3); Monocytes % 7.5 %; Neutrophils # 3.4 K/mcL (1.6-8.9); Platelet Count 124 K/mcL (140-400); Red Blood Count 2.51 M/mcL (4.19-5.50); Red Cell Distribution Width 16.9 % (11.5-14.5); Segmented Neutrophils % 72.2 %; White Blood Count 4.7 K/mcL (4.3-11.1)
[2021-12-06 19:21] LABS: Alanine Aminotransferase 18 Units/L (7-52); Albumin 3.4 g/dL (3.5-5.7); Albumin/Globulin Ratio 0.9 (1.1-2.2); Alkaline Phosphatase 166 Units/L (34-104); Aspartate Amino Transferase 14 Units/L (13-39); BUN/Creatinine Ratio 53 (6-26); Bilirubin,Direct 0.2 mg/dL (0.0-0.2); Bilirubin,Indirect 0.4 mg/dL (0.0-1.0); Bilirubin,Total 0.6 mg/dL (0.3-1.0); Blood Urea Nitrogen 60 mg/dL (8-23); Calcium 9.5 mg/dL (8.6-10.3); Carbon Dioxide 32 mEq/L (23-29); Chloride 106 mEq/L (98-107); Globulin 3.6 g/dL (2.4-3.5); Glucose 149 mg/dL (70-105); Lipase 47 Units/L (11-82); Osmolality,Calculated 318 (280-300); Sodium 144 mEq/L (136-145); eGFR For African Americans > 60 (> 60); eGFR For Non-African Americans > 60 (> 60)
[2021-12-06 19:44] LABS: Bilirubin,Urine Negative (Negative); Blood,Urine Negative (Negative); Clarity,Urine Clear (Clear); Color,Urine Light-Yellow (Yellow); Glucose,Urine (UA) Normal (Normal); Ketones,Urine Negative (Negative); Leukocyte Esterase,Urine Negative (Negative); Nitrite,Urine Negative (Negative); PH,Urine 7.5 pH Units (5.0-8.0); Protein,Urine Trace mg/dL (Neg-Trace); Specific Gravity,Urine 1.016 (1.010-1.025); Urobilinogen,Urine Normal (Normal)
[2021-12-06] MEDS ORDERED: Naloxone 0.4 MG/ML INJ IVP PRN (19:44)
[2021-12-06] MEDS ORDERED: Acetaminophen 325 MG TABLET PO PRN (19:44)
[2021-12-06] MEDS ORDERED: 0.9 % Sodium Chloride 250 ML ONE (21:26)
[2021-12-06] MEDS ORDERED: *HR* Dextrose 50 % in Water (Syg) 50 ML SYRINGE IVP PRN (21:50)
[2021-12-06] MEDS ORDERED: D5% in Water 1,000 ML IVC PRN (21:50)
[2021-12-06] MEDS ORDERED: Dextrose 4 GM Chewable Tablets PO PRN ×2 (21:50)
[2021-12-07 04:35] LABS: Basophils % 0.3 %; Hemoglobin 6.9 g/dL (12.9-16.9); Immature Granulocytes % 0.3 % (0-4)
[2021-12-07 04:37] LABS: Eosinophils # 0.1 K/mcL (0.0-0.6); Eosinophils % 3.5 %; Immature Platelets 4.7 % (1.1-6.1); Lymphocytes # 0.9 K/mcL (0.6-4.6); Lymphocytes % 23.9 %; Mean Corpuscular HGB Conc 31.4 g/dL (31.6-35.5); Mean Corpuscular Hemoglobin 26.5 pg (28.0-33.3); Mean Corpuscular Volume 84.6 fL (83.0-100.0); Mean Platelet Volume 11.5 fL (9.4-12.4); Monocytes # 0.3 K/mcL (0.0-1.3); Monocytes % 8.7 %; Neutrophils # 2.3 K/mcL (1.6-8.9); Platelet Count 105 K/mcL (140-400); Segmented Neutrophils % 63.3 %; White Blood Count 3.7 K/mcL (4.3-11.1)
[2021-12-07 04:42] LABS: INR 1.9; Prothrombin Time 21.1 Seconds (9.4-12.1)
[2021-12-07 04:45] LABS: Activated Partial Thrombo Time 34.3 Seconds (26.0-36.0)
[2021-12-07 04:47] LABS: % Iron Saturation 5 % (20-55); BUN/Creatinine Ratio 54 (6-26); Blood Urea Nitrogen 56 mg/dL (8-23); Calcium 9.2 mg/dL (8.6-10.3); Carbon Dioxide 30 mEq/L (23-29); Chloride 109 mEq/L (98-107); Glucose 112 mg/dL (70-105); Iron 22 mcg/dL (65-175); Lactate Dehydrogenase 112 Units/L (140-271); Osmolality,Calculated 318 (280-300); Phosphorous 3.5 mg/dL (2.7-4.5); Potassium 3.7 mEq/L (3.5-5.1); Sodium 146 mEq/L (136-145); Transferrin 286 mg/dL (203-362); eGFR For African Americans > 60 (> 60); eGFR For Non-African Americans > 60 (> 60)
[2021-12-07 04:59] LABS: Thyroid Stimulating Hormone 0.816 mcIU/mL (0.340-5.600)
[2021-12-07] MEDS ORDERED: 0.9 % Sodium Chloride 250 ML ONE (08:20)
[2021-12-07] MEDS: carvediloL 25 MG TABLET PO SCH ×2 (08:58→16:49)
[2021-12-07] MEDS: Aspirin 81 MG TAB.CHEW PO SCH (08:58)
[2021-12-07] MEDS: allopurinoL 100 MG TABLET PO SCH (08:58)
[2021-12-07] MEDS: amLODIPine 5 MG TABLET PO SCH (08:58)
[2021-12-07] MEDS: hydroCHLOROthiazide 25 MG TABLET PO SCH (08:59)
[2021-12-07] MEDS: Insulin LISPRO 300 UNITS/3 ML VIAL SUBQ SCH ×3 (08:59→16:46)
[2021-12-07] MEDS: Cholecalciferol (D-3) 1,000 UNIT (25MCG) TABLET PO SCH (08:59)
[2021-12-07] MEDS: Pyridostigmine Br 60 MG TABLET PO SCH ×3 (10:06→21:40)
[2021-12-07] MEDS: Pantoprazole 40 MG VIAL IVP SCH (16:49)
[2021-12-07] MEDS: cefTRIAXone 1,000 MG in 0.9 % Sodium Chloride 10 ML IVP SCH (17:56)
[2021-12-08] MEDS: Pantoprazole 40 MG VIAL IVP SCH ×2 (06:18→17:45)
[2021-12-08] MEDS: Ondansetron 4 MG/2 ML VIAL IVP PRN (06:59)
[2021-12-08 07:47] LABS: Basophils % 0.8 %; Eosinophils # 0.1 K/mcL (0.0-0.6); Eosinophils % 2.7 %; Hematocrit 23.3 % (37.5-50.1); Hemoglobin 7.4 g/dL (12.9-16.9); Immature Granulocytes % 0.3 % (0-4); Lymphocytes # 0.9 K/mcL (0.6-4.6); Lymphocytes % 25.6 %; Mean Corpuscular HGB Conc 31.8 g/dL (31.6-35.5); Mean Corpuscular Hemoglobin 27.3 pg (28.0-33.3); Mean Platelet Volume 11.4 fL (9.4-12.4); Monocytes # 0.3 K/mcL (0.0-1.3); Monocytes % 8.2 %; Neutrophils # 2.3 K/mcL (1.6-8.9); Platelet Count 112 K/mcL (140-400); Red Blood Count 2.71 M/mcL (4.19-5.50); Red Cell Distribution Width 17.1 % (11.5-14.5); Segmented Neutrophils % 62.4 %; White Blood Count 3.7 K/mcL (4.3-11.1)
[2021-12-08 08:07] LABS: Alanine Aminotransferase 16 Units/L (7-52); Albumin 3.1 g/dL (3.5-5.7); Alkaline Phosphatase 140 Units/L (34-104); Aspartate Amino Transferase 12 Units/L (13-39); BUN/Creatinine Ratio 50 (6-26); Bilirubin,Total 0.8 mg/dL (0.3-1.0); Blood Urea Nitrogen 53 mg/dL (8-23); Calcium 9.3 mg/dL (8.6-10.3); Carbon Dioxide 30 mEq/L (23-29); Chloride 112 mEq/L (98-107); Glucose 119 mg/dL (70-105); Osmolality,Calculated 322 (280-300); Potassium 3.7 mEq/L (3.5-5.1); Sodium 148 mEq/L (136-145); Total Protein 6.1 g/dL (6.4-8.9); eGFR For African Americans > 60 (> 60); eGFR For Non-African Americans > 60 (> 60)
[2021-12-08] MEDS: hydroCHLOROthiazide 25 MG TABLET PO SCH (09:30)
[2021-12-08] MEDS: Pyridostigmine Br 60 MG TABLET PO SCH ×3 (09:30→21:28)
[2021-12-08] MEDS: Cholecalciferol (D-3) 1,000 UNIT (25MCG) TABLET PO SCH (09:30)
[2021-12-08] MEDS: amLODIPine 5 MG TABLET PO SCH (09:30)
[2021-12-08] MEDS: allopurinoL 100 MG TABLET PO SCH (09:30)
[2021-12-08] MEDS: carvediloL 25 MG TABLET PO SCH ×2 (09:30→17:45)
[2021-12-08] MEDS: Aspirin 81 MG TAB.CHEW PO SCH (09:30)
[2021-12-08] MEDS: Insulin LISPRO 300 UNITS/3 ML VIAL SUBQ SCH ×3 (10:07→17:45)
[2021-12-08] MEDS: cefTRIAXone 1,000 MG in 0.9 % Sodium Chloride 10 ML IVP SCH (13:00)
[2021-12-09] MEDS: Pantoprazole 40 MG VIAL IVP SCH ×2 (05:36→18:18)
[2021-12-09] MEDS: Insulin LISPRO 300 UNITS/3 ML VIAL SUBQ SCH ×3 (10:58→16:50)
[2021-12-09] MEDS: Pyridostigmine Br 60 MG TABLET PO SCH ×3 (10:59→21:37)
[2021-12-09] MEDS: amLODIPine 5 MG TABLET PO SCH (10:59)
[2021-12-09] MEDS: Cholecalciferol (D-3) 1,000 UNIT (25MCG) TABLET PO SCH (10:59)
[2021-12-09] MEDS: Aspirin 81 MG TAB.CHEW PO SCH (10:59)
[2021-12-09] MEDS: carvediloL 25 MG TABLET PO SCH ×2 (10:59→16:49)
[2021-12-09] MEDS: hydroCHLOROthiazide 25 MG TABLET PO SCH (10:59)
[2021-12-09] MEDS: allopurinoL 100 MG TABLET PO SCH (10:59)
[2021-12-09] MEDS: cefTRIAXone 1,000 MG in 0.9 % Sodium Chloride 10 ML IVP SCH (11:35)
[2021-12-09 12:16] LABS: Immature Platelets 2.9 % (1.1-6.1)
[2021-12-09 12:18] LABS: Hematocrit 24.3 % (37.5-50.1); Hemoglobin 7.6 g/dL (12.9-16.9); Mean Corpuscular HGB Conc 31.3 g/dL (31.6-35.5); Mean Corpuscular Volume 86.2 fL (83.0-100.0); Red Blood Count 2.82 M/mcL (4.19-5.50); Red Cell Distribution Width 16.9 % (11.5-14.5); White Blood Count 3.4 K/mcL (4.3-11.1)
[2021-12-09] MEDS ORDERED: Lidocaine -MPF 2% 5 ML VIAL ONE ×2 (12:27)
[2021-12-09 12:36] LABS: BUN/Creatinine Ratio 39 (6-26); Blood Urea Nitrogen 40 mg/dL (8-23); Calcium 9.3 mg/dL (8.6-10.3); Carbon Dioxide 28 mEq/L (23-29); Chloride 115 mEq/L (98-107); Glucose 140 mg/dL (70-105); Osmolality,Calculated 320 (280-300); Potassium 3.6 mEq/L (3.5-5.1); Sodium 149 mEq/L (136-145); eGFR For African Americans > 60 (> 60); eGFR For Non-African Americans > 60 (> 60)
[2021-12-09] MEDS ORDERED: Ondansetron 4 MG/2 ML VIAL ONE (12:56)
[2021-12-09] MEDS ORDERED: Lidocaine HCL 4 ML Topical Solution (Laryng-O-Jet Kit Sterile Pak) TP ONE (12:56)
[2021-12-09] MEDS ORDERED: Lacri-Lube 3.5 GM TUBE ONE (13:23)
[2021-12-09] MEDS ORDERED: *HR* Propofol 200 MG/20 ML VIAL IVP ONE (13:43)
[2021-12-09 15:06] LABS: Phosphorous 3.4 mg/dL (2.7-4.5)
[2021-12-09] MEDS: Apixaban 5 MG TABLET PO SCH (21:36)
[2021-12-10] MEDS: Pantoprazole 40 MG VIAL IVP SCH ×2 (05:29→18:02)
[2021-12-10] MEDS: carvediloL 25 MG TABLET PO SCH ×2 (08:41→18:09)
[2021-12-10] MEDS: Pyridostigmine Br 60 MG TABLET PO SCH ×3 (08:41→20:55)
[2021-12-10] MEDS: Insulin LISPRO 300 UNITS/3 ML VIAL SUBQ SCH ×3 (09:40→18:09)
[2021-12-10] MEDS: cefTRIAXone 1,000 MG in 0.9 % Sodium Chloride 10 ML IVP SCH (10:09)
[2021-12-10] MEDS: allopurinoL 100 MG TABLET PO SCH (11:52)
[2021-12-10] MEDS: Aspirin 81 MG TAB.CHEW PO SCH (11:52)
[2021-12-10] MEDS: Cholecalciferol (D-3) 1,000 UNIT (25MCG) TABLET PO SCH (11:52)
[2021-12-10] MEDS: hydroCHLOROthiazide 25 MG TABLET PO SCH (11:53)
[2021-12-10] MEDS: amLODIPine 5 MG TABLET PO SCH (11:53)
[2021-12-10] MEDS: Apixaban 5 MG TABLET PO SCH ×2 (11:54→20:55)
[2021-12-10 12:48] LABS: Hematocrit 24.4 % (37.5-50.1); Hemoglobin 7.7 g/dL (12.9-16.9); Mean Corpuscular HGB Conc 31.6 g/dL (31.6-35.5); Mean Corpuscular Hemoglobin 27.5 pg (28.0-33.3); Mean Corpuscular Volume 87.1 fL (83.0-100.0); Mean Platelet Volume 11.4 fL (9.4-12.4); Platelet Count 115 K/mcL (140-400); Red Cell Distribution Width 17.1 % (11.5-14.5); White Blood Count 3.2 K/mcL (4.3-11.1)
[2021-12-10 13:34] LABS: BUN/Creatinine Ratio 43 (6-26); Blood Urea Nitrogen 40 mg/dL (8-23); Calcium 9.1 mg/dL (8.6-10.3); Carbon Dioxide 27 mEq/L (23-29); Chloride 115 mEq/L (98-107); Glucose 144 mg/dL (70-105); Osmolality,Calculated 320 (280-300); Phosphorous 3.5 mg/dL (2.7-4.5); Potassium 3.6 mEq/L (3.5-5.1); Sodium 149 mEq/L (136-145); eGFR For African Americans > 60 (> 60); eGFR For Non-African Americans > 60 (> 60)
[2021-12-10] MEDS ORDERED: *HR* Propofol 200 MG/20 ML VIAL IVP ONE ×5 (14:40→16:01)
[2021-12-10] MEDS ORDERED: Lidocaine -MPF 2% 2 ML VIAL ONE (14:40)
[2021-12-10] MEDS: Ondansetron 4 MG/2 ML VIAL IVP PRN (18:02)
[2021-12-11] MEDS: Pantoprazole 40 MG VIAL IVP SCH (06:33)
[2021-12-11 07:17] LABS: Hemoglobin 7.1 g/dL (12.9-16.9); Mean Corpuscular HGB Conc 29.6 g/dL (31.6-35.5); Mean Corpuscular Hemoglobin 26.1 pg (28.0-33.3); Mean Corpuscular Volume 88.2 fL (83.0-100.0); Mean Platelet Volume 10.7 fL (9.4-12.4); Platelet Count 120 K/mcL (140-400); Red Blood Count 2.72 M/mcL (4.19-5.50); Red Cell Distribution Width 17.3 % (11.5-14.5); White Blood Count 3.8 K/mcL (4.3-11.1)
[2021-12-11 07:38] LABS: BUN/Creatinine Ratio 39 (6-26); Blood Urea Nitrogen 37 mg/dL (8-23); Calcium 8.9 mg/dL (8.6-10.3); Carbon Dioxide 28 mEq/L (23-29); Chloride 115 mEq/L (98-107); Glucose 227 mg/dL (70-105); Osmolality,Calculated 320 (280-300); Sodium 147 mEq/L (136-145); eGFR For African Americans > 60 (> 60); eGFR For Non-African Americans > 60 (> 60)
[2021-12-11 07:56] VITALS: TEMP 98.1
[2021-12-11] MEDS: amLODIPine 5 MG TABLET PO SCH (08:57)
[2021-12-11] MEDS: hydroCHLOROthiazide 25 MG TABLET PO SCH (08:58)
[2021-12-11] MEDS: cefTRIAXone 1,000 MG in 0.9 % Sodium Chloride 10 ML IVP SCH (08:58)
[2021-12-11] MEDS: carvediloL 25 MG TABLET PO SCH (08:58)
[2021-12-11] MEDS: Aspirin 81 MG TAB.CHEW PO SCH (08:58)
[2021-12-11] MEDS: Apixaban 5 MG TABLET PO SCH (08:58)
[2021-12-11] MEDS: Cholecalciferol (D-3) 1,000 UNIT (25MCG) TABLET PO SCH (08:58)
[2021-12-11] MEDS: allopurinoL 100 MG TABLET PO SCH (08:58)
[2021-12-11] MEDS: Pyridostigmine Br 60 MG TABLET PO SCH ×2 (09:02→12:36)
[2021-12-11] MEDS: Insulin LISPRO 300 UNITS/3 ML VIAL SUBQ SCH ×2 (09:02→12:30)
[2021-12-11 11:12] VITALS: BP 121/64; PULSE 67; O2SAT 93
== END 2021-12-11 14:07 | disposition home or self-care (01) | DRG 381 ==
LOC: EMEROOARM 18:16 → 3NENU 18:16
PROVIDERS: ADMIT Student in an Organized Health Care Education/Training Program; ATTEND Student in an Organized Health Care Education/Training Program
PROC: ENDOEBX (2021-12-09 13:30)

== ENCOUNTER 2022-01-31 18:55 | Inpatient (IN) ==
[2022-01-31 21:01] LABS: Basophils % 0.6 %; Eosinophils % 0.9 %; Hematocrit 21.8 % (37.5-50.1); Hemoglobin 6.5 g/dL (12.9-16.9); Immature Granulocytes % 0.6 % (0-4); Lymphocytes # 0.6 K/mcL (0.6-4.6); Lymphocytes % 17.8 %; Mean Corpuscular HGB Conc 29.8 g/dL (31.6-35.5); Mean Corpuscular Hemoglobin 24.9 pg (28.0-33.3); Mean Corpuscular Volume 83.5 fL (83.0-100.0); Monocytes # 0.4 K/mcL (0.0-1.3); Monocytes % 11.3 %; Neutrophils # 2.2 K/mcL (1.6-8.9); Platelet Count 138 K/mcL (140-400); Red Blood Count 2.61 M/mcL (4.19-5.50); Red Cell Distribution Width 17.1 % (11.5-14.5); Segmented Neutrophils % 68.8 %; White Blood Count 3.2 K/mcL (4.3-11.1)
[2022-01-31 21:19] LABS: BUN/Creatinine Ratio 42 (6-26); Blood Urea Nitrogen 47 mg/dL (8-23); Calcium 8.6 mg/dL (8.6-10.3); Carbon Dioxide 27 mEq/L (23-29); Chloride 105 mEq/L (98-107); Glucose 131 mg/dL (70-105); Osmolality,Calculated 302 (280-300); Potassium 3.9 mEq/L (3.5-5.1); Sodium 139 mEq/L (136-145); eGFR For African Americans > 60 (> 60); eGFR For Non-African Americans > 60 (> 60)
[2022-01-31 21:44] LABS: Adenovirus Not Detected (Not Detect); Bordetella Pertussis Not Detected (Not Detect); Chlamydophila pneumoniae Not Detected (Not Detect); Coronavirus 229E Not Detected (Not Detect); Coronavirus HKU1 Not Detected (Not Detect); Coronavirus NL63 Not Detected (Not Detect); Coronavirus OC43 Not Detected (Not Detect); Human Metapneumovirus Not Detected (Not Detect); Human Rhinovirus/Enterovirus DETECTED (Not Detect); Influenza A Subtype 2009 H1 Not Detected (Not Detect); Influenza B Not Detected (Not Detect); Mycoplasma pneumoniae Not Detected (Not Detect); Parainfluenza Virus 1 Not Detected (Not Detect); Parainfluenza Virus 2 Not Detected (Not Detect); Parainfluenza Virus 3 Not Detected (Not Detect); Parainfluenza Virus 4 Not Detected (Not Detect); Respiratory Syncytial Virus Not Detected (Not Detect); SARS-CoV-2 Not Detected (Not Detect)
[2022-01-31] MEDS ORDERED: Piperacillin/Tazobactam 3.375 GM in 0.9 % Sodium Chloride Mini Bag 100 ML IVPB ONE (22:37)
[2022-01-31] MEDS ORDERED: Vancomycin 1,500 MG/265 ML IV.SOLN IVPB ONE (22:37)
[2022-02-01 01:07] LABS: Bilirubin,Urine Negative (Negative); Blood,Urine Negative (Negative); Clarity,Urine Clear (Clear); Color,Urine Light-Yellow (Yellow); Glucose,Urine (UA) Normal (Normal); Ketones,Urine Negative (Negative); Leukocyte Esterase,Urine Negative (Negative); Nitrite,Urine Negative (Negative); Protein,Urine Trace mg/dL (Neg-Trace); Specific Gravity,Urine 1.014 (1.010-1.025); Urobilinogen,Urine Normal (Normal)
[2022-02-01] MEDS ORDERED: Melatonin 3 MG TABLET PO PRN (01:31)
[2022-02-01] MEDS ORDERED: Naloxone 0.4 MG/ML INJ IVP PRN (01:31)
[2022-02-01] MEDS ORDERED: Ondansetron 4 MG/2 ML VIAL IVP PRN (01:31)
[2022-02-01] MEDS: Pantoprazole 40 MG VIAL IVP SCH ×3 (01:51→17:38)
[2022-02-01] MEDS ORDERED: 0.9 % Sodium Chloride 250 ML ONE (02:04)
[2022-02-01 07:01] LABS: Basophils % 0.3 %; Eosinophils % 0.9 %; Hematocrit 23.7 % (37.5-50.1); Hemoglobin 7.1 g/dL (12.9-16.9); Immature Granulocytes % 0.9 % (0-4); Lymphocytes # 0.6 K/mcL (0.6-4.6); Lymphocytes % 17.8 %; Mean Corpuscular Hemoglobin 24.8 pg (28.0-33.3); Mean Corpuscular Volume 82.9 fL (83.0-100.0); Mean Platelet Volume 10.7 fL (9.4-12.4); Monocytes # 0.4 K/mcL (0.0-1.3); Monocytes % 10.7 %; Neutrophils # 2.4 K/mcL (1.6-8.9); Platelet Count 143 K/mcL (140-400); Red Blood Count 2.86 M/mcL (4.19-5.50); Segmented Neutrophils % 69.4 %; White Blood Count 3.4 K/mcL (4.3-11.1)
[2022-02-01 07:09] LABS: INR 1.9
[2022-02-01 07:11] LABS: Activated Partial Thrombo Time 35.8 Seconds (26.0-36.0)
[2022-02-01 07:33] LABS: Alanine Aminotransferase 14 Units/L (7-52); Albumin/Globulin Ratio 0.8 (1.1-2.2); Alkaline Phosphatase 177 Units/L (34-104); Aspartate Amino Transferase 10 Units/L (13-39); BUN/Creatinine Ratio 39 (6-26); Blood Urea Nitrogen 42 mg/dL (8-23); Calcium 8.9 mg/dL (8.6-10.3); Carbon Dioxide 28 mEq/L (23-29); Chloride 106 mEq/L (98-107); Glucose 134 mg/dL (70-105); Magnesium 2.1 mg/dL (1.6-2.6); Osmolality,Calculated 306 (280-300); Phosphorous 3.4 mg/dL (2.7-4.5); Potassium 3.6 mEq/L (3.5-5.1); Sodium 142 mEq/L (136-145); eGFR For African Americans > 60 (> 60); eGFR For Non-African Americans > 60 (> 60)
[2022-02-01 12:48] LABS: Hematocrit 23.9 % (37.5-50.1); Hemoglobin 7.1 g/dL (12.9-16.9)
[2022-02-01] MEDS: Furosemide 20 MG/2 ML VIAL IVP SCH (14:00)
[2022-02-01 18:28] LABS: Hematocrit 24.1 % (37.5-50.1); Hemoglobin 7.2 g/dL (12.9-16.9)
[2022-02-01] MEDS ORDERED: Acetaminophen IV 1,000 MG/100 ML BAG IVPB ONE (23:54)
[2022-02-01] MEDS ORDERED: GuaiFENesin Liq 200 MG/10 ML UDC GTUBE ONE (23:54)
[2022-02-02] MEDS: Pantoprazole 40 MG VIAL IVP SCH ×2 (06:35→18:08)
[2022-02-02 07:11] LABS: Hematocrit 22.8 % (37.5-50.1); Hemoglobin 6.7 g/dL (12.9-16.9); Mean Corpuscular HGB Conc 29.4 g/dL (31.6-35.5); Mean Corpuscular Hemoglobin 24.5 pg (28.0-33.3); Mean Corpuscular Volume 83.2 fL (83.0-100.0); Platelet Count 151 K/mcL (140-400); Red Blood Count 2.74 M/mcL (4.19-5.50); Red Cell Distribution Width 17.2 % (11.5-14.5); White Blood Count 3.9 K/mcL (4.3-11.1)
[2022-02-02 07:21] LABS: BUN/Creatinine Ratio 41 (6-26); Blood Urea Nitrogen 44 mg/dL (8-23); Calcium 8.4 mg/dL (8.6-10.3); Carbon Dioxide 28 mEq/L (23-29); Chloride 107 mEq/L (98-107); Glucose 200 mg/dL (70-105); Osmolality,Calculated 311 (280-300); Potassium 3.7 mEq/L (3.5-5.1); Sodium 142 mEq/L (136-145); eGFR For African Americans > 60 (> 60); eGFR For Non-African Americans > 60 (> 60)
[2022-02-02] MEDS: Furosemide 20 MG/2 ML VIAL IVP SCH (07:43)
[2022-02-02] MEDS ORDERED: 0.9 % Sodium Chloride 250 ML ONE (14:23)
[2022-02-02 18:36] LABS: Basophils % 0.5 %; Eosinophils # 0.1 K/mcL (0.0-0.6); Eosinophils % 2.3 %; Hematocrit 25.3 % (37.5-50.1); Hemoglobin 7.7 g/dL (12.9-16.9); Immature Granulocytes % 0.2 % (0-4); Lymphocytes # 0.7 K/mcL (0.6-4.6); Lymphocytes % 16.9 %; Mean Corpuscular HGB Conc 30.4 g/dL (31.6-35.5); Mean Corpuscular Hemoglobin 25.2 pg (28.0-33.3); Mean Platelet Volume 10.4 fL (9.4-12.4); Monocytes # 0.3 K/mcL (0.0-1.3); Monocytes % 7.5 %; Neutrophils # 3.1 K/mcL (1.6-8.9); Platelet Count 147 K/mcL (140-400); Red Blood Count 3.05 M/mcL (4.19-5.50); Red Cell Distribution Width 16.8 % (11.5-14.5); Segmented Neutrophils % 72.6 %; White Blood Count 4.3 K/mcL (4.3-11.1)
[2022-02-03] MEDS: Pantoprazole 40 MG VIAL IVP SCH ×2 (05:20→17:12)
[2022-02-03 07:00] LABS: Hematocrit 26.7 % (37.5-50.1); Hemoglobin 7.8 g/dL (12.9-16.9); Mean Corpuscular HGB Conc 29.2 g/dL (31.6-35.5); Mean Corpuscular Hemoglobin 24.7 pg (28.0-33.3); Mean Corpuscular Volume 84.5 fL (83.0-100.0); Mean Platelet Volume 11.3 fL (9.4-12.4); Platelet Count 151 K/mcL (140-400); Red Blood Count 3.16 M/mcL (4.19-5.50); Red Cell Distribution Width 17.1 % (11.5-14.5); White Blood Count 4.1 K/mcL (4.3-11.1)
[2022-02-03 07:18] LABS: BUN/Creatinine Ratio 45 (6-26); Blood Urea Nitrogen 41 mg/dL (8-23); Calcium 8.5 mg/dL (8.6-10.3); Carbon Dioxide 28 mEq/L (23-29); Chloride 109 mEq/L (98-107); Glucose 146 mg/dL (70-105); Osmolality,Calculated 309 (280-300); Potassium 3.9 mEq/L (3.5-5.1); Sodium 143 mEq/L (136-145); eGFR For African Americans > 60 (> 60); eGFR For Non-African Americans > 60 (> 60)
[2022-02-03] MEDS: Furosemide 20 MG/2 ML VIAL IVP SCH ×2 (08:02→20:12)
[2022-02-03] MEDS: polyethylene glycoL 3350 17 GM POWD.PACK PO SCH (09:18)
[2022-02-03] MEDS: Pyridostigmine Br 60 MG TABLET PO SCH ×2 (12:57→22:16)
[2022-02-03] MEDS ORDERED: Aspirin 81 MG TAB.CHEW PO SCH (13:00)
[2022-02-03] MEDS ORDERED: Perflutren Lipid Microsphere 1.3 ML in 0.9 % Sodium Chloride 8.7 ML IVP PRN (13:58)
[2022-02-03] MEDS ORDERED: Iopamidol - 370 500 ML MLS IVP ONE (14:20)
[2022-02-03] MEDS ORDERED: amLODIPine 5 MG TABLET PO SCH (17:30)
[2022-02-03] MEDS: hydroCHLOROthiazide 25 MG TABLET PO SCH (18:02)
[2022-02-03] MEDS ORDERED: Apixaban 5 MG TABLET PO SCH (20:00)
[2022-02-03] MEDS: carvediloL 25 MG TABLET PO SCH (22:16)
[2022-02-04] MEDS ORDERED: D5% in Water 1,000 ML IVC PRN (00:17)
[2022-02-04] MEDS ORDERED: Dextrose Gel 15 GM/37.5 ML TUBE PO PRN ×2 (00:17)
[2022-02-04] MEDS ORDERED: *HR* Dextrose 50 % in Water (Syg) 50 ML SYRINGE IVP PRN (00:17)
[2022-02-04] MEDS: Insulin LISPRO 300 UNITS/3 ML VIAL SUBQ SCH ×4 (00:29→17:09)
[2022-02-04 03:01] LABS: Eosinophils % 0.7 %; Hematocrit 24.9 % (37.5-50.1); Hemoglobin 7.3 g/dL (12.9-16.9); Immature Granulocytes % 0.5 % (0-4); Lymphocytes # 0.5 K/mcL (0.6-4.6); Lymphocytes % 12.5 %; Mean Corpuscular HGB Conc 29.3 g/dL (31.6-35.5); Mean Corpuscular Hemoglobin 24.8 pg (28.0-33.3); Mean Corpuscular Volume 84.7 fL (83.0-100.0); Mean Platelet Volume 10.9 fL (9.4-12.4); Monocytes # 0.3 K/mcL (0.0-1.3); Neutrophils # 3.3 K/mcL (1.6-8.9); Platelet Count 131 K/mcL (140-400); Red Blood Count 2.94 M/mcL (4.19-5.50); Red Cell Distribution Width 17.2 % (11.5-14.5); Segmented Neutrophils % 79.3 %; White Blood Count 4.2 K/mcL (4.3-11.1)
[2022-02-04 03:21] LABS: Alanine Aminotransferase 11 Units/L (7-52); Albumin 2.7 g/dL (3.5-5.7); Albumin/Globulin Ratio 0.7 (1.1-2.2); Alkaline Phosphatase 151 Units/L (34-104); Aspartate Amino Transferase 8 Units/L (13-39); BUN/Creatinine Ratio 41 (6-26); Bilirubin,Total 1.2 mg/dL (0.3-1.0); Blood Urea Nitrogen 36 mg/dL (8-23); Calcium 8.5 mg/dL (8.6-10.3); Carbon Dioxide 29 mEq/L (23-29); Chloride 109 mEq/L (98-107); Globulin 3.9 g/dL (2.4-3.5); Glucose 191 mg/dL (70-105); Osmolality,Calculated 309 (280-300); Potassium 3.3 mEq/L (3.5-5.1); Sodium 143 mEq/L (136-145); Total Protein 6.6 g/dL (6.4-8.9); eGFR For African Americans > 60 (> 60); eGFR For Non-African Americans > 60 (> 60)
[2022-02-04] MEDS: Pantoprazole 40 MG VIAL IVP SCH ×2 (05:33→17:08)
[2022-02-04] MEDS: hydroCHLOROthiazide 25 MG TABLET PO SCH (05:34)
[2022-02-04] MEDS ORDERED: FLUoxetine 20 MG CAPSULE PO SCH (08:00)
[2022-02-04] MEDS ORDERED: allopurinoL 100 MG TABLET PO SCH (08:00)
[2022-02-04] MEDS ORDERED: Potassium Chloride Elixir 20 MEQ/15 ML UDC GTUBE ONE (08:31)
[2022-02-04] MEDS ORDERED: Ascorbic Acid 500 MG TABLET PO SCH (09:00)
[2022-02-04 09:09] LABS: Alanine Aminotransferase 12 Units/L (7-52); Albumin 2.9 g/dL (3.5-5.7); Albumin/Globulin Ratio 0.7 (1.1-2.2); Alkaline Phosphatase 164 Units/L (34-104); Aspartate Amino Transferase 10 Units/L (13-39); Bilirubin,Total 0.9 mg/dL (0.3-1.0); Globulin 3.9 g/dL (2.4-3.5); Total Protein 6.8 g/dL (6.4-8.9)
[2022-02-04] MEDS: carvediloL 25 MG TABLET PO SCH (09:16)
[2022-02-04] MEDS: Pyridostigmine Br 60 MG TABLET PO SCH (09:17)
[2022-02-04] MEDS: Furosemide 20 MG/2 ML VIAL IVP SCH ×2 (09:17→19:28)
[2022-02-04] MEDS: polyethylene glycoL 3350 17 GM POWD.PACK PO SCH (09:21)
[2022-02-04] MEDS: Aspirin 81 MG TAB.CHEW GTUBE SCH (12:35)
[2022-02-04] MEDS: amLODIPine 5 MG TABLET GTUBE SCH (12:35)
[2022-02-04] MEDS: Pyridostigmine Br 60 MG TABLET GTUBE SCH ×2 (12:35→19:27)
[2022-02-04 17:29] LABS: Basophils % 0.5 %; Eosinophils # 0.1 K/mcL (0.0-0.6); Eosinophils % 2.5 %; Immature Granulocytes % 0.5 % (0-4); Lymphocytes % 12.6 %; Monocytes # 0.3 K/mcL (0.0-1.3); Monocytes % 7.8 %; Nucleated Red Blood Cells 0.5 /100 WBC (0); Segmented Neutrophils % 76.1 %
[2022-02-04 17:30] LABS: Lymphocytes # 0.5 K/mcL (0.6-4.6); Neutrophils # 3.1 K/mcL (1.6-8.9)
[2022-02-04] MEDS: carvediloL 25 MG TABLET GTUBE SCH (19:27)
[2022-02-05] MEDS: Insulin LISPRO 300 UNITS/3 ML VIAL SUBQ SCH ×4 (01:27→17:46)
[2022-02-05 04:33] LABS: Basophils % 0.2 %; Eosinophils # 0.1 K/mcL (0.0-0.6); Eosinophils % 2.9 %; Hematocrit 23.8 % (37.5-50.1); Hemoglobin 6.9 g/dL (12.9-16.9); Immature Granulocytes % 0.2 % (0-4); Lymphocytes # 0.6 K/mcL (0.6-4.6); Lymphocytes % 14.5 %; Mean Corpuscular Hemoglobin 24.8 pg (28.0-33.3); Mean Corpuscular Volume 85.6 fL (83.0-100.0); Mean Platelet Volume 10.8 fL (9.4-12.4); Monocytes # 0.3 K/mcL (0.0-1.3); Monocytes % 6.2 %; Neutrophils # 3.2 K/mcL (1.6-8.9); Platelet Count 130 K/mcL (140-400); Red Blood Count 2.78 M/mcL (4.19-5.50); Red Cell Distribution Width 17.2 % (11.5-14.5); White Blood Count 4.2 K/mcL (4.3-11.1)
[2022-02-05 04:35] LABS: Alanine Aminotransferase 12 Units/L (7-52); Albumin 2.7 g/dL (3.5-5.7); Albumin/Globulin Ratio 0.7 (1.1-2.2); Alkaline Phosphatase 151 Units/L (34-104); Aspartate Amino Transferase 10 Units/L (13-39); BUN/Creatinine Ratio 49 (6-26); Bilirubin,Total 0.9 mg/dL (0.3-1.0); Blood Urea Nitrogen 44 mg/dL (8-23); Calcium 8.6 mg/dL (8.6-10.3); Carbon Dioxide 32 mEq/L (23-29); Chloride 109 mEq/L (98-107); Globulin 3.8 g/dL (2.4-3.5); Glucose 85 mg/dL (70-105); Osmolality,Calculated 310 (280-300); Potassium 3.6 mEq/L (3.5-5.1); Sodium 145 mEq/L (136-145); Total Protein 6.5 g/dL (6.4-8.9); eGFR For African Americans > 60 (> 60); eGFR For Non-African Americans > 60 (> 60)
[2022-02-05] MEDS ORDERED: hydroCHLOROthiazide 25 MG TABLET GTUBE SCH (06:00)
[2022-02-05] MEDS: Pantoprazole 40 MG VIAL IVP SCH ×2 (06:42→17:51)
[2022-02-05] MEDS: Ferrous Sulfate Oral Soln 300 MG/5 ML UDC GTUBE SCH (06:42)
[2022-02-05] MEDS: allopurinoL 100 MG TABLET GTUBE SCH (09:20)
[2022-02-05] MEDS: Pyridostigmine Br 60 MG TABLET GTUBE SCH ×3 (09:21→21:21)
[2022-02-05] MEDS: Ascorbic Acid 500 MG TABLET GTUBE SCH (09:21)
[2022-02-05] MEDS: carvediloL 25 MG TABLET GTUBE SCH ×2 (09:21→21:14)
[2022-02-05] MEDS: FLUoxetine HCl Oral Soln 20 MG/5 ML UDC GTUBE SCH (09:22)
[2022-02-05] MEDS: Furosemide 20 MG/2 ML VIAL IVP SCH (09:22)
[2022-02-05] MEDS: polyethylene glycoL 3350 17 GM POWD.PACK GTUBE SCH (09:25)
[2022-02-05 10:13] LABS: % Iron Saturation 4 % (20-55); Iron 14 mcg/dL (65-175); Transferrin 255 mg/dL (203-362)
[2022-02-05 10:30] LABS: Ferritin 76 ng/mL (20-250)
[2022-02-05 10:36] LABS: Folate 11.1 ng/mL (3.0-16.0)
[2022-02-05] MEDS ORDERED: Azithromycin 250 MG TABLET PO SCH (10:45)
[2022-02-05] MEDS ORDERED: 0.9 % Sodium Chloride 250 ML IVC ONE (10:49)
[2022-02-05] MEDS ORDERED: Iron Sucrose Complex 500 MG in 0.9 % Sodium Chloride 250 ML IVPB ONE (10:57)
[2022-02-05] MEDS: cefTRIAXone 1,000 MG in Water for inj. (sterile) 10 ML IVP SCH (11:15)
[2022-02-05] MEDS: acetaZOLAMIDE 250 MG in Water for inj. (sterile) 2.5 ML IVP SCH (11:15)
[2022-02-05] MEDS: Azithromycin 500 MG in 0.9 % Sodium Chloride 250 ML IVPB SCH (11:16)
[2022-02-05] MEDS: Aspirin 81 MG TAB.CHEW GTUBE SCH (13:11)
[2022-02-05] MEDS: amLODIPine 5 MG TABLET GTUBE SCH (13:11)
[2022-02-05] MEDS: Melatonin 3 MG TABLET GTUBE PRN (21:14)
[2022-02-06] MEDS: Insulin LISPRO 300 UNITS/3 ML VIAL SUBQ SCH ×4 (01:43→18:26)
[2022-02-06 04:39] LABS: Basophils % 0.3 %; Eosinophils # 0.2 K/mcL (0.0-0.6); Eosinophils % 5.1 %; Hematocrit 25.5 % (37.5-50.1); Hemoglobin 7.5 g/dL (12.9-16.9); Immature Granulocytes % 0.3 % (0-4); Lymphocytes # 0.5 K/mcL (0.6-4.6); Lymphocytes % 12.9 %; Mean Corpuscular HGB Conc 29.4 g/dL (31.6-35.5); Mean Corpuscular Hemoglobin 25.5 pg (28.0-33.3); Mean Corpuscular Volume 86.7 fL (83.0-100.0); Mean Platelet Volume 10.7 fL (9.4-12.4); Monocytes # 0.2 K/mcL (0.0-1.3); Monocytes % 6.5 %; Neutrophils # 2.7 K/mcL (1.6-8.9); Platelet Count 140 K/mcL (140-400); Red Blood Count 2.94 M/mcL (4.19-5.50); Red Cell Distribution Width 16.9 % (11.5-14.5); Segmented Neutrophils % 74.9 %; White Blood Count 3.6 K/mcL (4.3-11.1)
[2022-02-06 04:55] LABS: Alanine Aminotransferase 13 Units/L (7-52); Albumin 2.6 g/dL (3.5-5.7); Albumin/Globulin Ratio 0.6 (1.1-2.2); Alkaline Phosphatase 153 Units/L (34-104); Aspartate Amino Transferase 11 Units/L (13-39); BUN/Creatinine Ratio 47 (6-26); Bilirubin,Total 0.9 mg/dL (0.3-1.0); Blood Urea Nitrogen 43 mg/dL (8-23); Calcium 8.5 mg/dL (8.6-10.3); Carbon Dioxide 29 mEq/L (23-29); Chloride 110 mEq/L (98-107); Globulin 4.1 g/dL (2.4-3.5); Glucose 231 mg/dL (70-105); Osmolality,Calculated 318 (280-300); Potassium 3.6 mEq/L (3.5-5.1); Sodium 145 mEq/L (136-145); Total Protein 6.7 g/dL (6.4-8.9); eGFR For African Americans > 60 (> 60); eGFR For Non-African Americans > 60 (> 60)
[2022-02-06] MEDS: Pantoprazole 40 MG VIAL IVP SCH ×2 (06:17→18:19)
[2022-02-06] MEDS: Ferrous Sulfate Oral Soln 300 MG/5 ML UDC GTUBE SCH (06:17)
[2022-02-06] MEDS: carvediloL 25 MG TABLET GTUBE SCH ×2 (09:06→21:08)
[2022-02-06] MEDS: Ascorbic Acid 500 MG TABLET GTUBE SCH (09:06)
[2022-02-06] MEDS: Azithromycin 500 MG in 0.9 % Sodium Chloride 250 ML IVPB SCH (09:07)
[2022-02-06] MEDS: FLUoxetine HCl Oral Soln 20 MG/5 ML UDC GTUBE SCH (09:07)
[2022-02-06] MEDS: cefTRIAXone 1,000 MG in Water for inj. (sterile) 10 ML IVP SCH (09:07)
[2022-02-06] MEDS: Pyridostigmine Br 60 MG TABLET GTUBE SCH ×3 (09:07→21:08)
[2022-02-06] MEDS: allopurinoL 100 MG TABLET GTUBE SCH (09:07)
[2022-02-06] MEDS: polyethylene glycoL 3350 17 GM POWD.PACK GTUBE SCH (09:22)
[2022-02-06] MEDS: acetaZOLAMIDE 250 MG in Water for inj. (sterile) 2.5 ML IVP SCH (09:24)
[2022-02-06] MEDS: amLODIPine 5 MG TABLET GTUBE SCH (12:43)
[2022-02-06] MEDS: Nystatin POWDER 30 GM BOTTLE TP SCH ×2 (12:44→21:08)
[2022-02-06] MEDS: Aspirin 81 MG TAB.CHEW GTUBE SCH (12:44)
[2022-02-06] MEDS: Melatonin 3 MG TABLET GTUBE PRN (21:08)
[2022-02-07] MEDS: Insulin LISPRO 300 UNITS/3 ML VIAL SUBQ SCH ×4 (03:43→15:28)
[2022-02-07] MEDS: Ferrous Sulfate Oral Soln 300 MG/5 ML UDC GTUBE SCH (06:41)
[2022-02-07] MEDS: Pantoprazole 40 MG VIAL IVP SCH ×2 (06:41→17:14)
[2022-02-07] MEDS: FLUoxetine HCl Oral Soln 20 MG/5 ML UDC GTUBE SCH (08:53)
[2022-02-07] MEDS: carvediloL 25 MG TABLET GTUBE SCH ×2 (08:54→21:33)
[2022-02-07] MEDS: allopurinoL 100 MG TABLET GTUBE SCH (08:54)
[2022-02-07] MEDS: Ascorbic Acid 500 MG TABLET GTUBE SCH (08:54)
[2022-02-07] MEDS: Pyridostigmine Br 60 MG TABLET GTUBE SCH ×3 (09:01→21:33)
[2022-02-07] MEDS: Nystatin POWDER 30 GM BOTTLE TP SCH ×2 (09:02→21:34)
[2022-02-07] MEDS: cefTRIAXone 1,000 MG in Water for inj. (sterile) 10 ML IVP SCH (09:05)
[2022-02-07 09:51] LABS: Basophils % 0.3 %; Eosinophils # 0.2 K/mcL (0.0-0.6); Eosinophils % 4.3 %; Hematocrit 26.4 % (37.5-50.1); Hemoglobin 7.8 g/dL (12.9-16.9); Immature Granulocytes % 0.3 % (0-4); Lymphocytes # 0.6 K/mcL (0.6-4.6); Lymphocytes % 14.8 %; Mean Corpuscular HGB Conc 29.5 g/dL (31.6-35.5); Mean Corpuscular Hemoglobin 25.2 pg (28.0-33.3); Mean Corpuscular Volume 85.2 fL (83.0-100.0); Mean Platelet Volume 10.9 fL (9.4-12.4); Monocytes # 0.3 K/mcL (0.0-1.3); Monocytes % 6.9 %; Neutrophils # 2.9 K/mcL (1.6-8.9); Platelet Count 149 K/mcL (140-400); Red Cell Distribution Width 17.1 % (11.5-14.5); Segmented Neutrophils % 73.4 %; White Blood Count 3.9 K/mcL (4.3-11.1)
[2022-02-07 10:15] LABS: Alanine Aminotransferase 15 Units/L (7-52); Albumin 2.7 g/dL (3.5-5.7); Albumin/Globulin Ratio 0.7 (1.1-2.2); Alkaline Phosphatase 185 Units/L (34-104); Aspartate Amino Transferase 12 Units/L (13-39); BUN/Creatinine Ratio 44 (6-26); Bilirubin,Total 0.6 mg/dL (0.3-1.0); Blood Urea Nitrogen 43 mg/dL (8-23); Calcium 8.6 mg/dL (8.6-10.3); Carbon Dioxide 27 mEq/L (23-29); Chloride 109 mEq/L (98-107); Glucose 239 mg/dL (70-105); Osmolality,Calculated 307 (280-300); Sodium 139 mEq/L (136-145); Total Protein 6.7 g/dL (6.4-8.9); eGFR For African Americans > 60 (> 60); eGFR For Non-African Americans > 60 (> 60)
[2022-02-07] MEDS: acetaZOLAMIDE 250 MG in Water for inj. (sterile) 2.5 ML IVP SCH (10:58)
[2022-02-07] MEDS: Azithromycin 500 MG in 0.9 % Sodium Chloride 250 ML IVPB SCH (11:15)
[2022-02-07] MEDS ORDERED: E-Z-PAQUE (BARIUM SULF) SUSP 1 BOTTLE PO ONE (12:43)
[2022-02-07] MEDS ORDERED: E-Z-HD (BARIUM SULF) SUSPENSION PO ONE (12:43)
[2022-02-07] MEDS: amLODIPine 5 MG TABLET GTUBE SCH (13:03)
[2022-02-07] MEDS: Aspirin 81 MG TAB.CHEW GTUBE SCH (13:09)
[2022-02-07] MEDS: Furosemide 20 MG/2 ML VIAL IVP SCH (17:14)
[2022-02-08] MEDS: Insulin LISPRO 300 UNITS/3 ML VIAL SUBQ SCH ×4 (00:35→16:43)
[2022-02-08] MEDS: Ferrous Sulfate Oral Soln 300 MG/5 ML UDC GTUBE SCH (05:17)
[2022-02-08] MEDS: Pantoprazole 40 MG VIAL IVP SCH (05:18)
[2022-02-08 07:27] LABS: Basophils % 0.6 %; Eosinophils # 0.2 K/mcL (0.0-0.6); Eosinophils % 3.9 %; Hematocrit 28.8 % (37.5-50.1); Hemoglobin 8.6 g/dL (12.9-16.9); Immature Granulocytes % 0.4 % (0-4); Lymphocytes # 0.7 K/mcL (0.6-4.6); Mean Corpuscular HGB Conc 29.9 g/dL (31.6-35.5); Mean Corpuscular Hemoglobin 25.7 pg (28.0-33.3); Mean Platelet Volume 11.1 fL (9.4-12.4); Monocytes # 0.3 K/mcL (0.0-1.3); Monocytes % 6.3 %; Neutrophils # 3.5 K/mcL (1.6-8.9); Platelet Count 166 K/mcL (140-400); Red Blood Count 3.35 M/mcL (4.19-5.50); Red Cell Distribution Width 17.3 % (11.5-14.5); Segmented Neutrophils % 74.8 %; White Blood Count 4.6 K/mcL (4.3-11.1)
[2022-02-08 08:00] LABS: Alanine Aminotransferase 19 Units/L (7-52); Albumin 3.1 g/dL (3.5-5.7); Albumin/Globulin Ratio 0.7 (1.1-2.2); Alkaline Phosphatase 201 Units/L (34-104); Aspartate Amino Transferase 15 Units/L (13-39); BUN/Creatinine Ratio 46 (6-26); Bilirubin,Total 0.8 mg/dL (0.3-1.0); Blood Urea Nitrogen 41 mg/dL (8-23); Calcium 9.1 mg/dL (8.6-10.3); Carbon Dioxide 23 mEq/L (23-29); Chloride 109 mEq/L (98-107); Globulin 4.5 g/dL (2.4-3.5); Glucose 124 mg/dL (70-105); Osmolality,Calculated 300 (280-300); Potassium 4.3 mEq/L (3.5-5.1); Sodium 139 mEq/L (136-145); Total Protein 7.6 g/dL (6.4-8.9); eGFR For African Americans > 60 (> 60); eGFR For Non-African Americans > 60 (> 60)
[2022-02-08] MEDS: FLUoxetine HCl Oral Soln 20 MG/5 ML UDC GTUBE SCH (09:23)
[2022-02-08] MEDS: allopurinoL 100 MG TABLET GTUBE SCH (09:24)
[2022-02-08] MEDS: Ascorbic Acid 500 MG TABLET GTUBE SCH (09:24)
[2022-02-08] MEDS: cefTRIAXone 1,000 MG in Water for inj. (sterile) 10 ML IVP SCH (09:24)
[2022-02-08] MEDS: carvediloL 25 MG TABLET GTUBE SCH ×2 (09:24→19:30)
[2022-02-08] MEDS: Furosemide 20 MG/2 ML VIAL IVP SCH ×2 (09:24→16:33)
[2022-02-08] MEDS: [UNRECOGNIZED DRUG - OTHER] GTUBE SCH (09:25)
[2022-02-08] MEDS: Nystatin POWDER 30 GM BOTTLE TP SCH ×2 (09:25→21:12)
[2022-02-08] MEDS: Pyridostigmine Br 60 MG TABLET GTUBE SCH ×3 (09:28→19:30)
[2022-02-08] MEDS: Azithromycin 500 MG in 0.9 % Sodium Chloride 250 ML IVPB SCH (11:20)
[2022-02-08] MEDS: amLODIPine 5 MG TABLET GTUBE SCH (14:06)
[2022-02-08] MEDS: Aspirin 81 MG TAB.CHEW GTUBE SCH (14:06)
[2022-02-09] MEDS: Insulin LISPRO 300 UNITS/3 ML VIAL SUBQ SCH ×4 (00:07→17:24)
[2022-02-09] MEDS: Ferrous Sulfate Oral Soln 300 MG/5 ML UDC GTUBE SCH (06:51)
[2022-02-09] MEDS: FLUoxetine HCl Oral Soln 20 MG/5 ML UDC GTUBE SCH (10:07)
[2022-02-09] MEDS: Furosemide 20 MG/2 ML VIAL IVP SCH ×2 (10:07→18:01)
[2022-02-09] MEDS: allopurinoL 100 MG TABLET GTUBE SCH (10:08)
[2022-02-09] MEDS: Pyridostigmine Br 60 MG TABLET GTUBE SCH ×2 (10:08→12:53)
[2022-02-09] MEDS: cefTRIAXone 1,000 MG in Water for inj. (sterile) 10 ML IVP SCH (10:08)
[2022-02-09] MEDS: Ascorbic Acid 500 MG TABLET GTUBE SCH (10:08)
[2022-02-09] MEDS: carvediloL 25 MG TABLET GTUBE SCH (10:08)
[2022-02-09] MEDS: [UNRECOGNIZED DRUG - OTHER] GTUBE SCH (10:09)
[2022-02-09] MEDS: Nystatin POWDER 30 GM BOTTLE TP SCH (10:09)
[2022-02-09] MEDS ORDERED: Apixaban 5 MG TABLET GTUBE SCH (10:45)
[2022-02-09 12:20] LABS: Zinc 37.3 ug/dL (60.0-120.0)
[2022-02-09] MEDS: Azithromycin 500 MG in 0.9 % Sodium Chloride 250 ML IVPB SCH (12:49)
[2022-02-09] MEDS: amLODIPine 5 MG TABLET GTUBE SCH (12:53)
[2022-02-09] MEDS: Aspirin 81 MG TAB.CHEW GTUBE SCH (12:53)
[2022-02-09 17:50] VITALS: BP 130/84; PULSE 68; TEMP 97.4; O2SAT 94
[2022-02-10] MEDS ORDERED: cefTRIAXone 1,000 MG in 0.9 % Sodium Chloride 10 ML IVP SCH (09:00)
== END 2022-02-09 18:51 | disposition home health service (06) | DRG 193 ==
LOC: 2ANU 18:55 → EMEROOARM 18:55 → 2ANU 02-01 00:54 → SUATTDRO 02-02 18:50
PROVIDERS: ADMIT Family Medicine; ATTEND Family Medicine

== ENCOUNTER 2022-02-25 11:00 | Inpatient (IN) ==
[2022-02-25] MEDS ORDERED: Morphine Sulfate 2 MG/ML SYRINGE IVP ONE (11:23)
[2022-02-25] MEDS ORDERED: 0.9 % Sodium Chloride 1,000 ML IVC ONE (11:23)
[2022-02-25] MEDS ORDERED: Ondansetron 4 MG/2 ML VIAL IVP ONE (11:23)
[2022-02-25] MEDS ORDERED: Pantoprazole 80 MG in 0.9 % Sodium Chloride 50 ML IVPB ONE (11:23)
[2022-02-25] MEDS ORDERED: Iopamidol - 370 500 ML MLS IVP ONE (11:27)
[2022-02-25] MEDS: Pantoprazole 40 MG in 0.9 % Sodium Chloride Mini Bag 100 ML IVC SCH ×4 (11:47→23:07)
[2022-02-25 11:52] LABS: Basophils % 0.5 %; Eosinophils # 0.1 K/mcL (0.0-0.6); Eosinophils % 1.1 %; Hematocrit 21.7 % (37.5-50.1); Hemoglobin 6.5 g/dL (12.9-16.9); Immature Granulocytes % 0.4 % (0-4); Lymphocytes # 0.7 K/mcL (0.6-4.6); Lymphocytes % 12.4 %; Mean Corpuscular Hemoglobin 26.1 pg (28.0-33.3); Mean Corpuscular Volume 87.1 fL (83.0-100.0); Mean Platelet Volume 10.7 fL (9.4-12.4); Monocytes # 0.4 K/mcL (0.0-1.3); Monocytes % 7.8 %; Neutrophils # 4.4 K/mcL (1.6-8.9); Platelet Count 149 K/mcL (140-400); Red Blood Count 2.49 M/mcL (4.19-5.50); Red Cell Distribution Width 18.6 % (11.5-14.5); Segmented Neutrophils % 77.8 %; White Blood Count 5.6 K/mcL (4.3-11.1)
[2022-02-25 12:00] LABS: INR 1.5; Prothrombin Time 16.3 Seconds (9.4-12.1)
[2022-02-25 12:03] LABS: Activated Partial Thrombo Time 32.7 Seconds (26.0-36.0)
[2022-02-25 12:46] LABS: BUN/Creatinine Ratio 77 (6-26); Blood Urea Nitrogen 111 mg/dL (8-23); Calcium 9.3 mg/dL (8.6-10.3); Carbon Dioxide 24 mEq/L (23-29); Chloride 107 mEq/L (98-107); Glucose 177 mg/dL (70-105); Lipase 120 Units/L (11-82); Magnesium 2.5 mg/dL (1.6-2.6); Osmolality,Calculated 325 (280-300); Sodium 138 mEq/L (136-145); Troponin I < 0.03 ng/mL (< 0.04); eGFR For African Americans 57 (> 60); eGFR For Non-African Americans 47 (> 60)
[2022-02-25 12:57] LABS: Retculocyte # 0.02 M/mcL (0.05-0.10); Reticulocyte % 0.8 % (1.6-2.8)
[2022-02-25] MEDS ORDERED: Calcium Gluconate 1gm/50mL 1 GM/50 ML BAG IVPB PRN (13:09)
[2022-02-25] MEDS ORDERED: 0.9 % Sodium Chloride 1,000 ML IV ONE (13:09)
[2022-02-25 13:19] LABS: % Iron Saturation 12 % (20-55); Iron 42 mcg/dL (65-175); Transferrin 253 mg/dL (203-362)
[2022-02-25] MEDS ORDERED: cefTRIAXone 1,000 MG in 0.9 % Sodium Chloride 20 ML IVP ONE (14:46)
[2022-02-25] MEDS ORDERED: Melatonin 3 MG TABLET PO PRN (14:47)
[2022-02-25] MEDS ORDERED: Naloxone 0.4 MG/ML INJ IVP PRN (14:47)
[2022-02-25] MEDS ORDERED: Ondansetron ODT 4 MG TAB.RAPDIS SL PRN (14:47)
[2022-02-25] MEDS ORDERED: 0.9 % Sodium Chloride 250 ML ONE ×2 (14:55→22:30)
[2022-02-25 15:06] LABS: Influenza A PCR Negative (Negative); Influenza B PCR Negative (Negative); Resp. Syncytial Virus PCR Negative (Negative); SARS-CoV-2 by PCR (In House) Negative (Negative)
[2022-02-25] MEDS ORDERED: Insulin Human Regular 10 UNIT in 0.9 % Sodium Chloride 10 ML IV ONE (15:52)
[2022-02-25] MEDS ORDERED: *HR* Dextrose 50 % in Water (Vial) 50 ML VIAL IVP ONE (15:52)
[2022-02-25] MEDS ORDERED: Albuterol 2.5 MG/3 ML NEBULIZER IH ONE (15:52)
[2022-02-25] MEDS ORDERED: *HR* Dextrose 50 % in Water (Syg) 50 ML SYRINGE IVP PRN (15:55)
[2022-02-25] MEDS ORDERED: Dextrose Gel 15 GM/37.5 ML TUBE PO PRN ×2 (15:55)
[2022-02-25] MEDS ORDERED: D5% in Water 1,000 ML IVC PRN (15:55)
[2022-02-25] MEDS: 0.9 % Sodium Chloride 1,000 ML IVC SCH (16:28)
[2022-02-25 16:39] LABS: Alanine Aminotransferase 25 Units/L (7-52); Albumin/Globulin Ratio 0.7 (1.1-2.2); Alkaline Phosphatase 175 Units/L (34-104); Aspartate Amino Transferase 15 Units/L (13-39); Bilirubin,Direct 0.1 mg/dL (0.0-0.2); Bilirubin,Indirect 0.2 mg/dL (0.0-1.0); Bilirubin,Total 0.3 mg/dL (0.3-1.0); Globulin 4.3 g/dL (2.4-3.5); Total Protein 7.3 g/dL (6.4-8.9)
[2022-02-25] MEDS: Pyridostigmine Br 60 MG TABLET PO SCH (20:35)
[2022-02-25 20:48] LABS: Hematocrit 20.1 % (37.5-50.1); Hemoglobin 6.1 g/dL (12.9-16.9)
[2022-02-25] MEDS: Acetaminophen 325 MG TABLET PO PRN (20:52)
[2022-02-25] MEDS: Cefepime HCl 2,000 MG in 0.9 % Sodium Chloride 10 ML IVP SCH (20:54)
[2022-02-25 21:00] LABS: BUN/Creatinine Ratio 79 (6-26); Blood Urea Nitrogen 107 mg/dL (8-23); Calcium 8.8 mg/dL (8.6-10.3); Carbon Dioxide 23 mEq/L (23-29); Chloride 110 mEq/L (98-107); Glucose 140 mg/dL (70-105); Osmolality,Calculated 324 (280-300); Potassium 5.2 mEq/L (3.5-5.1); Sodium 139 mEq/L (136-145); eGFR For African Americans > 60 (> 60); eGFR For Non-African Americans 51 (> 60)
[2022-02-25] MEDS: Insulin LISPRO 300 UNITS/3 ML VIAL SUBQ SCH (23:10)
[2022-02-26 02:28] LABS: Bilirubin,Urine Negative (Negative); Blood,Urine Negative (Negative); Clarity,Urine Clear (Clear); Color,Urine Light-Yellow (Yellow); Glucose,Urine (UA) Normal (Normal); Ketones,Urine Negative (Negative); Leukocyte Esterase,Urine Negative (Negative); Nitrite,Urine Negative (Negative); Protein,Urine Negative (Neg-Trace); Urobilinogen,Urine Normal (Normal)
[2022-02-26 03:44] LABS: Hematocrit 21.3 % (37.5-50.1); Hemoglobin 6.5 g/dL (12.9-16.9)
[2022-02-26 03:53] LABS: Alanine Aminotransferase 21 Units/L (7-52); Albumin 2.6 g/dL (3.5-5.7); Albumin/Globulin Ratio 0.7 (1.1-2.2); Alkaline Phosphatase 130 Units/L (34-104); Aspartate Amino Transferase 11 Units/L (13-39); BUN/Creatinine Ratio 79 (6-26); Bilirubin,Total 0.4 mg/dL (0.3-1.0); Blood Urea Nitrogen 103 mg/dL (8-23); Carbon Dioxide 22 mEq/L (23-29); Chloride 113 mEq/L (98-107); Globulin 3.8 g/dL (2.4-3.5); Glucose 130 mg/dL (70-105); Magnesium 2.3 mg/dL (1.6-2.6); Osmolality,Calculated 326 (280-300); Phosphorous 4.2 mg/dL (2.7-4.5); Potassium 4.9 mEq/L (3.5-5.1); Sodium 141 mEq/L (136-145); Total Protein 6.4 g/dL (6.4-8.9); eGFR For African Americans > 60 (> 60); eGFR For Non-African Americans 53 (> 60)
[2022-02-26] MEDS ORDERED: 0.9 % Sodium Chloride 250 ML ONE (04:20)
[2022-02-26] MEDS: Cefepime HCl 2,000 MG in 0.9 % Sodium Chloride 10 ML IVP SCH ×3 (04:21→20:34)
[2022-02-26] MEDS: 0.9 % Sodium Chloride 1,000 ML IVC SCH (04:25)
[2022-02-26] MEDS: Pantoprazole 40 MG in 0.9 % Sodium Chloride Mini Bag 100 ML IVC SCH ×4 (04:26→20:34)
[2022-02-26] MEDS: Insulin LISPRO 300 UNITS/3 ML VIAL SUBQ SCH ×3 (04:49→17:31)
[2022-02-26] MEDS: Pyridostigmine Br 60 MG TABLET PO SCH ×3 (08:10→20:36)
[2022-02-26] MEDS ORDERED: Lidocaine -MPF 2% 5 ML VIAL ONE (08:30)
[2022-02-26] MEDS ORDERED: *HR* Propofol 200 MG/20 ML VIAL IVP ONE (08:30)
[2022-02-26] MEDS: Acetaminophen 325 MG TABLET PO PRN ×2 (10:35→17:09)
[2022-02-26 10:42] LABS: Basophils % 0.6 %; Eosinophils # 0.1 K/mcL (0.0-0.6); Eosinophils % 1.1 %; Hematocrit 24.4 % (37.5-50.1); Hemoglobin 7.7 g/dL (12.9-16.9); Immature Granulocytes % 0.2 % (0-4); Lymphocytes # 0.5 K/mcL (0.6-4.6); Lymphocytes % 11.7 %; Mean Corpuscular HGB Conc 31.6 g/dL (31.6-35.5); Mean Corpuscular Hemoglobin 27.4 pg (28.0-33.3); Mean Corpuscular Volume 86.8 fL (83.0-100.0); Mean Platelet Volume 10.9 fL (9.4-12.4); Monocytes # 0.3 K/mcL (0.0-1.3); Monocytes % 7.3 %; Neutrophils # 3.7 K/mcL (1.6-8.9); Platelet Count 111 K/mcL (140-400); Red Blood Count 2.81 M/mcL (4.19-5.50); Red Cell Distribution Width 17.2 % (11.5-14.5); Segmented Neutrophils % 79.1 %; White Blood Count 4.6 K/mcL (4.3-11.1)
[2022-02-26] MEDS: Nystatin POWDER 30 GM BOTTLE TP SCH ×2 (12:48→20:35)
[2022-02-26] MEDS: Ascorbic Acid 500 MG TABLET PO SCH (12:55)
[2022-02-26] MEDS ORDERED: 0.9 % Sodium Chloride 500 ML IVC ONE (17:45)
[2022-02-26] MEDS: carvediloL 25 MG TABLET PO SCH (20:33)
[2022-02-27] MEDS: Insulin LISPRO 300 UNITS/3 ML VIAL SUBQ SCH ×4 (00:48→18:25)
[2022-02-27 01:16] LABS: Basophils % 0.5 %; Eosinophils % 0.5 %; Hematocrit 22.6 % (37.5-50.1); Immature Granulocytes % 0.5 % (0-4); Lymphocytes # 0.5 K/mcL (0.6-4.6); Lymphocytes % 12.8 %; Mean Corpuscular Hemoglobin 27.3 pg (28.0-33.3); Mean Corpuscular Volume 88.3 fL (83.0-100.0); Mean Platelet Volume 10.7 fL (9.4-12.4); Monocytes # 0.4 K/mcL (0.0-1.3); Monocytes % 8.6 %; Neutrophils # 3.1 K/mcL (1.6-8.9); Platelet Count 106 K/mcL (140-400); Red Blood Count 2.56 M/mcL (4.19-5.50); Red Cell Distribution Width 17.6 % (11.5-14.5); Segmented Neutrophils % 77.1 %; White Blood Count 4.1 K/mcL (4.3-11.1)
[2022-02-27 01:36] LABS: Alanine Aminotransferase 21 Units/L (7-52); Albumin 2.7 g/dL (3.5-5.7); Albumin/Globulin Ratio 0.8 (1.1-2.2); Alkaline Phosphatase 130 Units/L (34-104); Aspartate Amino Transferase 12 Units/L (13-39); BUN/Creatinine Ratio 65 (6-26); Bilirubin,Total 0.4 mg/dL (0.3-1.0); Blood Urea Nitrogen 83 mg/dL (8-23); Calcium 8.6 mg/dL (8.6-10.3); Carbon Dioxide 21 mEq/L (23-29); Chloride 119 mEq/L (98-107); Globulin 3.6 g/dL (2.4-3.5); Glucose 253 mg/dL (70-105); Osmolality,Calculated 334 (280-300); Potassium 4.8 mEq/L (3.5-5.1); Sodium 145 mEq/L (136-145); Total Protein 6.3 g/dL (6.4-8.9); eGFR For African Americans > 60 (> 60); eGFR For Non-African Americans 54 (> 60)
[2022-02-27] MEDS: Pantoprazole 40 MG in 0.9 % Sodium Chloride Mini Bag 100 ML IVC SCH ×5 (02:19→23:16)
[2022-02-27] MEDS: 0.9 % Sodium Chloride 1,000 ML IVC SCH (03:57)
[2022-02-27] MEDS: allopurinoL 100 MG TABLET PO SCH (07:41)
[2022-02-27] MEDS: FLUoxetine 20 MG CAPSULE PO SCH (07:41)
[2022-02-27] MEDS: carvediloL 25 MG TABLET PO SCH ×2 (07:41→20:41)
[2022-02-27] MEDS: Ascorbic Acid 500 MG TABLET PO SCH (07:41)
[2022-02-27] MEDS: Pyridostigmine Br 60 MG TABLET PO SCH ×3 (07:41→20:43)
[2022-02-27] MEDS: cefTRIAXone 1,000 MG in 0.9 % Sodium Chloride 10 ML IVPB SCH ×2 (07:42→07:43)
[2022-02-27] MEDS: Nystatin POWDER 30 GM BOTTLE TP SCH ×2 (07:43→20:43)
[2022-02-27] MEDS ORDERED: 0.9 % Sodium Chloride 250 ML ONE (11:52)
[2022-02-27] MEDS: Acetaminophen 325 MG TABLET PO PRN ×2 (12:25→23:16)
[2022-02-27 22:21] LABS: Hematocrit 23.3 % (37.5-50.1); Hemoglobin 7.3 g/dL (12.9-16.9)
[2022-02-28] MEDS: Insulin LISPRO 300 UNITS/3 ML VIAL SUBQ SCH ×5 (00:03→18:27)
[2022-02-28 03:53] LABS: Basophils % 0.4 %; Eosinophils % 0.7 %; Hemoglobin 7.4 g/dL (12.9-16.9); Immature Granulocytes % 0.2 % (0-4); Lymphocytes # 0.7 K/mcL (0.6-4.6); Lymphocytes % 14.8 %; Mean Corpuscular HGB Conc 30.8 g/dL (31.6-35.5); Mean Corpuscular Hemoglobin 27.4 pg (28.0-33.3); Mean Corpuscular Volume 88.9 fL (83.0-100.0); Mean Platelet Volume 10.3 fL (9.4-12.4); Monocytes # 0.5 K/mcL (0.0-1.3); Monocytes % 10.1 %; Neutrophils # 3.3 K/mcL (1.6-8.9); Platelet Count 105 K/mcL (140-400); Red Cell Distribution Width 18.4 % (11.5-14.5); Segmented Neutrophils % 73.8 %; White Blood Count 4.5 K/mcL (4.3-11.1)
[2022-02-28] MEDS: Pantoprazole 40 MG in 0.9 % Sodium Chloride Mini Bag 100 ML IVC SCH ×3 (04:08→22:39)
[2022-02-28 04:12] LABS: Alanine Aminotransferase 21 Units/L (7-52); Albumin 2.7 g/dL (3.5-5.7); Albumin/Globulin Ratio 0.7 (1.1-2.2); Alkaline Phosphatase 141 Units/L (34-104); Aspartate Amino Transferase 11 Units/L (13-39); BUN/Creatinine Ratio 62 (6-26); Bilirubin,Total 0.3 mg/dL (0.3-1.0); Blood Urea Nitrogen 74 mg/dL (8-23); Calcium 9.1 mg/dL (8.6-10.3); Carbon Dioxide 22 mEq/L (23-29); Chloride 122 mEq/L (98-107); Globulin 3.7 g/dL (2.4-3.5); Glucose 189 mg/dL (70-105); Osmolality,Calculated 333 (280-300); Potassium 4.6 mEq/L (3.5-5.1); Sodium 148 mEq/L (136-145); Total Protein 6.4 g/dL (6.4-8.9); eGFR For African Americans > 60 (> 60); eGFR For Non-African Americans 58 (> 60)
[2022-02-28] MEDS: allopurinoL 100 MG TABLET PO SCH (08:29)
[2022-02-28] MEDS: FLUoxetine 20 MG CAPSULE PO SCH (08:29)
[2022-02-28] MEDS: carvediloL 25 MG TABLET PO SCH (08:29)
[2022-02-28] MEDS: Ascorbic Acid 500 MG TABLET PO SCH (08:30)
[2022-02-28] MEDS: cefTRIAXone 1,000 MG in 0.9 % Sodium Chloride 10 ML IVPB SCH (08:32)
[2022-02-28] MEDS: Pyridostigmine Br 60 MG TABLET PO SCH ×2 (08:33→12:03)
[2022-02-28] MEDS: Nystatin POWDER 30 GM BOTTLE TP SCH ×2 (12:01→20:39)
[2022-02-28] MEDS: Pantoprazole 40 MG VIAL IVP SCH (17:26)
[2022-02-28 18:48] LABS: Hematocrit 25.1 % (37.5-50.1); Hemoglobin 7.6 g/dL (12.9-16.9)
[2022-02-28] MEDS: carvediloL 25 MG TABLET GTUBE SCH (20:35)
[2022-02-28] MEDS: Melatonin 3 MG TABLET GTUBE PRN (20:38)
[2022-02-28] MEDS: Pyridostigmine Br 60 MG TABLET GTUBE SCH (20:39)
[2022-03-01] MEDS: Insulin LISPRO 300 UNITS/3 ML VIAL SUBQ SCH ×4 (00:21→18:17)
[2022-03-01 01:45] LABS: Basophils % 0.3 %; Eosinophils % 0.8 %; Hematocrit 23.6 % (37.5-50.1); Hemoglobin 7.4 g/dL (12.9-16.9); Immature Granulocytes % 0.3 % (0-4); Lymphocytes # 0.8 K/mcL (0.6-4.6); Lymphocytes % 19.7 %; Mean Corpuscular HGB Conc 31.4 g/dL (31.6-35.5); Mean Corpuscular Hemoglobin 28.2 pg (28.0-33.3); Mean Corpuscular Volume 90.1 fL (83.0-100.0); Mean Platelet Volume 10.6 fL (9.4-12.4); Monocytes # 0.3 K/mcL (0.0-1.3); Monocytes % 7.3 %; Neutrophils # 2.8 K/mcL (1.6-8.9); Platelet Count 105 K/mcL (140-400); Red Blood Count 2.62 M/mcL (4.19-5.50); Red Cell Distribution Width 18.6 % (11.5-14.5); Segmented Neutrophils % 71.6 %
[2022-03-01 02:01] LABS: Alanine Aminotransferase 21 Units/L (7-52); Albumin 2.7 g/dL (3.5-5.7); Albumin/Globulin Ratio 0.7 (1.1-2.2); Alkaline Phosphatase 140 Units/L (34-104); Aspartate Amino Transferase 12 Units/L (13-39); BUN/Creatinine Ratio 56 (6-26); Bilirubin,Total 0.5 mg/dL (0.3-1.0); Blood Urea Nitrogen 61 mg/dL (8-23); Calcium 9.4 mg/dL (8.6-10.3); Carbon Dioxide 22 mEq/L (23-29); Chloride 124 mEq/L (98-107); Glucose 125 mg/dL (70-105); Osmolality,Calculated 331 (280-300); Potassium 4.4 mEq/L (3.5-5.1); Sodium 151 mEq/L (136-145); Total Protein 6.7 g/dL (6.4-8.9); eGFR For African Americans > 60 (> 60); eGFR For Non-African Americans > 60 (> 60)
[2022-03-01] MEDS: Pantoprazole 40 MG VIAL IVP SCH ×2 (05:21→18:18)
[2022-03-01] MEDS: carvediloL 25 MG TABLET GTUBE SCH ×2 (09:30→19:40)
[2022-03-01] MEDS: allopurinoL 100 MG TABLET GTUBE SCH (09:30)
[2022-03-01] MEDS: cefTRIAXone 1,000 MG in 0.9 % Sodium Chloride 10 ML IVPB SCH (09:30)
[2022-03-01] MEDS: Ascorbic Acid 500 MG TABLET GTUBE SCH (09:30)
[2022-03-01] MEDS: Nystatin POWDER 30 GM BOTTLE TP SCH ×2 (09:31→19:41)
[2022-03-01] MEDS: Pyridostigmine Br 60 MG TABLET GTUBE SCH ×3 (09:32→19:40)
[2022-03-01 12:34] LABS: BUN/Creatinine Ratio 56 (6-26); Blood Urea Nitrogen 57 mg/dL (8-23); Calcium 9.4 mg/dL (8.6-10.3); Carbon Dioxide 22 mEq/L (23-29); Chloride 125 mEq/L (98-107); Glucose 144 mg/dL (70-105); Osmolality,Calculated 330 (280-300); Potassium 4.6 mEq/L (3.5-5.1); Sodium 151 mEq/L (136-145); eGFR For African Americans > 60 (> 60); eGFR For Non-African Americans > 60 (> 60)
[2022-03-01] MEDS: D5% in Water 1,000 ML IVC SCH ×2 (15:35→23:15)
[2022-03-02] MEDS: Insulin LISPRO 300 UNITS/3 ML VIAL SUBQ SCH ×4 (00:14→18:23)
[2022-03-02] MEDS: Pantoprazole 40 MG VIAL IVP SCH ×2 (05:12→18:22)
[2022-03-02 05:34] LABS: Basophils % 0.3 %; Eosinophils # 0.1 K/mcL (0.0-0.6); Eosinophils % 1.5 %; Hematocrit 23.4 % (37.5-50.1); Hemoglobin 7.1 g/dL (12.9-16.9); Immature Granulocytes % 0.3 % (0-4); Lymphocytes # 0.8 K/mcL (0.6-4.6); Lymphocytes % 20.2 %; Mean Corpuscular HGB Conc 30.3 g/dL (31.6-35.5); Mean Corpuscular Hemoglobin 27.5 pg (28.0-33.3); Mean Corpuscular Volume 90.7 fL (83.0-100.0); Mean Platelet Volume 10.3 fL (9.4-12.4); Monocytes # 0.2 K/mcL (0.0-1.3); Monocytes % 5.9 %; Neutrophils # 2.8 K/mcL (1.6-8.9); Platelet Count 103 K/mcL (140-400); Red Blood Count 2.58 M/mcL (4.19-5.50); Red Cell Distribution Width 18.8 % (11.5-14.5); Segmented Neutrophils % 71.8 %; White Blood Count 3.9 K/mcL (4.3-11.1)
[2022-03-02 05:55] LABS: Alanine Aminotransferase 24 Units/L (7-52); Albumin 2.7 g/dL (3.5-5.7); Albumin/Globulin Ratio 0.8 (1.1-2.2); Alkaline Phosphatase 141 Units/L (34-104); Aspartate Amino Transferase 13 Units/L (13-39); BUN/Creatinine Ratio 51 (6-26); Bilirubin,Total 0.4 mg/dL (0.3-1.0); Blood Urea Nitrogen 49 mg/dL (8-23); Calcium 8.8 mg/dL (8.6-10.3); Carbon Dioxide 23 mEq/L (23-29); Chloride 120 mEq/L (98-107); Globulin 3.6 g/dL (2.4-3.5); Glucose 173 mg/dL (70-105); Osmolality,Calculated 319 (280-300); Sodium 146 mEq/L (136-145); Total Protein 6.3 g/dL (6.4-8.9); eGFR For African Americans > 60 (> 60); eGFR For Non-African Americans > 60 (> 60)
[2022-03-02] MEDS: D5% in Water 1,000 ML IVC SCH ×2 (06:13→16:26)
[2022-03-02] MEDS: cefTRIAXone 1,000 MG in 0.9 % Sodium Chloride 10 ML IVPB SCH (09:49)
[2022-03-02] MEDS: Ascorbic Acid 500 MG TABLET GTUBE SCH (10:23)
[2022-03-02] MEDS: Pyridostigmine Br 60 MG TABLET GTUBE SCH ×4 (10:23→22:56)
[2022-03-02] MEDS: allopurinoL 100 MG TABLET GTUBE SCH (10:23)
[2022-03-02] MEDS: carvediloL 25 MG TABLET GTUBE SCH ×2 (10:24→22:56)
[2022-03-02] MEDS: Nystatin POWDER 30 GM BOTTLE TP SCH ×2 (12:18→22:56)
[2022-03-03] MEDS: Insulin LISPRO 300 UNITS/3 ML VIAL SUBQ SCH ×4 (01:31→17:27)
[2022-03-03 02:44] LABS: Basophils % 0.5 %; Eosinophils # 0.1 K/mcL (0.0-0.6); Eosinophils % 3.4 %; Hematocrit 22.9 % (37.5-50.1); Hemoglobin 6.9 g/dL (12.9-16.9); Immature Granulocytes % 0.2 % (0-4); Lymphocytes # 0.8 K/mcL (0.6-4.6); Lymphocytes % 19.8 %; Mean Corpuscular HGB Conc 30.1 g/dL (31.6-35.5); Mean Corpuscular Hemoglobin 27.4 pg (28.0-33.3); Mean Corpuscular Volume 90.9 fL (83.0-100.0); Monocytes # 0.2 K/mcL (0.0-1.3); Monocytes % 5.4 %; Neutrophils # 2.9 K/mcL (1.6-8.9); Platelet Count 115 K/mcL (140-400); Red Blood Count 2.52 M/mcL (4.19-5.50); Red Cell Distribution Width 18.6 % (11.5-14.5); Segmented Neutrophils % 70.7 %; White Blood Count 4.1 K/mcL (4.3-11.1)
[2022-03-03] MEDS: Melatonin 3 MG TABLET GTUBE PRN (02:46)
[2022-03-03 03:10] LABS: Alanine Aminotransferase 22 Units/L (7-52); Albumin 2.5 g/dL (3.5-5.7); Albumin/Globulin Ratio 0.7 (1.1-2.2); Alkaline Phosphatase 132 Units/L (34-104); Aspartate Amino Transferase 13 Units/L (13-39); BUN/Creatinine Ratio 42 (6-26); Bilirubin,Total 0.3 mg/dL (0.3-1.0); Blood Urea Nitrogen 36 mg/dL (8-23); Calcium 8.6 mg/dL (8.6-10.3); Carbon Dioxide 19 mEq/L (23-29); Chloride 116 mEq/L (98-107); Globulin 3.7 g/dL (2.4-3.5); Glucose 221 mg/dL (70-105); Osmolality,Calculated 303 (280-300); Potassium 3.9 mEq/L (3.5-5.1); Sodium 139 mEq/L (136-145); Total Protein 6.2 g/dL (6.4-8.9); eGFR For African Americans > 60 (> 60); eGFR For Non-African Americans > 60 (> 60)
[2022-03-03] MEDS ORDERED: 0.9 % Sodium Chloride 250 ML ONE (05:51)
[2022-03-03] MEDS: Pantoprazole 40 MG VIAL IVP SCH ×2 (06:17→17:31)
[2022-03-03] MEDS: D5% in Water 1,000 ML IVC SCH (06:17)
[2022-03-03] MEDS: cefTRIAXone 1,000 MG in 0.9 % Sodium Chloride 10 ML IVPB SCH (09:17)
[2022-03-03] MEDS: allopurinoL 100 MG TABLET GTUBE SCH (09:18)
[2022-03-03] MEDS: Ascorbic Acid 500 MG TABLET GTUBE SCH (09:18)
[2022-03-03] MEDS: Pyridostigmine Br 60 MG TABLET GTUBE SCH ×3 (09:19→21:10)
[2022-03-03] MEDS: Nystatin POWDER 30 GM BOTTLE TP SCH ×2 (09:19→21:55)
[2022-03-03] MEDS: carvediloL 25 MG TABLET GTUBE SCH ×2 (09:19→20:33)
[2022-03-03] MEDS: Ondansetron ODT 4 MG TAB.RAPDIS GTUBE PRN (09:33)
[2022-03-03] MEDS ORDERED: D5% in Water 1,000 ML IVC SCH (10:15)
[2022-03-03 14:30] LABS: Hematocrit 25.6 % (37.5-50.1)
[2022-03-03] MEDS ORDERED: Lidocaine -MPF 2% 5 ML VIAL ONE (15:32)
[2022-03-03] MEDS ORDERED: *HR* Propofol 200 MG/20 ML VIAL IVP ONE ×2 (15:33→16:00)
[2022-03-04] MEDS: Insulin LISPRO 300 UNITS/3 ML VIAL SUBQ SCH ×5 (00:40→23:49)
[2022-03-04] MEDS: Pantoprazole 40 MG VIAL IVP SCH ×2 (05:59→17:17)
[2022-03-04 07:42] LABS: Alanine Aminotransferase 24 Units/L (7-52); Albumin 2.5 g/dL (3.5-5.7); Albumin/Globulin Ratio 0.7 (1.1-2.2); Alkaline Phosphatase 155 Units/L (34-104); Aspartate Amino Transferase 12 Units/L (13-39); BUN/Creatinine Ratio 41 (6-26); Bilirubin,Total 0.4 mg/dL (0.3-1.0); Blood Urea Nitrogen 37 mg/dL (8-23); Calcium 8.1 mg/dL (8.6-10.3); Carbon Dioxide 22 mEq/L (23-29); Chloride 114 mEq/L (98-107); Globulin 3.6 g/dL (2.4-3.5); Glucose 195 mg/dL (70-105); Osmolality,Calculated 302 (280-300); Potassium 4.2 mEq/L (3.5-5.1); Sodium 139 mEq/L (136-145); Total Protein 6.1 g/dL (6.4-8.9); eGFR For African Americans > 60 (> 60); eGFR For Non-African Americans > 60 (> 60)
[2022-03-04] MEDS: allopurinoL 100 MG TABLET GTUBE SCH (08:41)
[2022-03-04] MEDS: Ascorbic Acid 500 MG TABLET GTUBE SCH (08:41)
[2022-03-04] MEDS: carvediloL 25 MG TABLET GTUBE SCH ×2 (08:41→19:45)
[2022-03-04] MEDS: cefTRIAXone 1,000 MG in 0.9 % Sodium Chloride 10 ML IVPB SCH (08:42)
[2022-03-04 09:52] LABS: Hemoglobin 7.9 g/dL (12.9-16.9)
[2022-03-04 09:54] LABS: Hematocrit 25.8 % (37.5-50.1); Immature Platelets 3.7 % (1.1-6.1); Mean Corpuscular HGB Conc 30.6 g/dL (31.6-35.5); Mean Corpuscular Hemoglobin 28.1 pg (28.0-33.3); Mean Corpuscular Volume 91.8 fL (83.0-100.0); Red Blood Count 2.81 M/mcL (4.19-5.50); Red Cell Distribution Width 18.1 % (11.5-14.5); White Blood Count 4.4 K/mcL (4.3-11.1)
[2022-03-04] MEDS ORDERED: Iron Sucrose Complex 400 MG in 0.9 % Sodium Chloride 250 ML IVPB ONE (10:25)
[2022-03-04] MEDS: Nystatin POWDER 30 GM BOTTLE TP SCH (11:00)
[2022-03-04] MEDS: Pyridostigmine Br 60 MG TABLET GTUBE SCH ×3 (11:58→19:45)
[2022-03-04 14:45] LABS: Basophils % 0.2 %; Eosinophils # 0.1 K/mcL (0.0-0.6); Eosinophils % 3.4 %; Hematocrit 25.2 % (37.5-50.1); Hemoglobin 7.7 g/dL (12.9-16.9); Immature Granulocytes % 0.5 % (0-4); Immature Platelets 3.4 % (1.1-6.1); Lymphocytes # 0.7 K/mcL (0.6-4.6); Lymphocytes % 16.3 %; Mean Corpuscular HGB Conc 30.6 g/dL (31.6-35.5); Mean Corpuscular Volume 91.6 fL (83.0-100.0); Mean Platelet Volume 11.6 fL (9.4-12.4); Monocytes # 0.3 K/mcL (0.0-1.3); Monocytes % 7.8 %; Platelet Count 116 K/mcL (140-400); Red Blood Count 2.75 M/mcL (4.19-5.50); Red Cell Distribution Width 18.3 % (11.5-14.5); Segmented Neutrophils % 71.8 %; White Blood Count 4.1 K/mcL (4.3-11.1)
[2022-03-04 14:52] LABS: INR 1.2; Prothrombin Time 13.8 Seconds (9.4-12.1)
[2022-03-04 14:54] LABS: Activated Partial Thrombo Time 26.5 Seconds (26.0-36.0)
[2022-03-04 15:25] LABS: Folate 9.1 ng/mL (3.0-16.0)
[2022-03-05] MEDS: Nystatin POWDER 30 GM BOTTLE TP SCH ×3 (03:19→19:53)
[2022-03-05 03:30] LABS: INR 1.3; Prothrombin Time 14.9 Seconds (9.4-12.1)
[2022-03-05 03:33] LABS: Activated Partial Thrombo Time 29.8 Seconds (26.0-36.0)
[2022-03-05] MEDS: Pantoprazole 40 MG VIAL IVP SCH (05:40)
[2022-03-05] MEDS: Insulin LISPRO 300 UNITS/3 ML VIAL SUBQ SCH ×3 (05:50→17:48)
[2022-03-05] MEDS: cefTRIAXone 1,000 MG in 0.9 % Sodium Chloride 10 ML IVPB SCH (07:42)
[2022-03-05] MEDS: Ascorbic Acid 500 MG TABLET GTUBE SCH (07:43)
[2022-03-05] MEDS: allopurinoL 100 MG TABLET GTUBE SCH (07:43)
[2022-03-05] MEDS: carvediloL 25 MG TABLET GTUBE SCH ×2 (07:43→19:52)
[2022-03-05] MEDS: Pyridostigmine Br 60 MG TABLET GTUBE SCH ×3 (07:43→20:00)
[2022-03-05] MEDS: Ondansetron ODT 4 MG TAB.RAPDIS GTUBE PRN (10:45)
[2022-03-05 16:46] LABS: Basophils % 0.3 %; Eosinophils # 0.2 K/mcL (0.0-0.6); Eosinophils % 5.7 %; Hematocrit 25.2 % (37.5-50.1); Hemoglobin 7.8 g/dL (12.9-16.9); Immature Granulocytes % 0.5 % (0-4); Lymphocytes # 0.7 K/mcL (0.6-4.6); Mean Corpuscular Hemoglobin 28.4 pg (28.0-33.3); Mean Corpuscular Volume 91.6 fL (83.0-100.0); Mean Platelet Volume 10.8 fL (9.4-12.4); Monocytes # 0.2 K/mcL (0.0-1.3); Monocytes % 5.2 %; Neutrophils # 2.6 K/mcL (1.6-8.9); Platelet Count 126 K/mcL (140-400); Red Blood Count 2.75 M/mcL (4.19-5.50); Red Cell Distribution Width 19.1 % (11.5-14.5); Segmented Neutrophils % 69.3 %; White Blood Count 3.7 K/mcL (4.3-11.1)
[2022-03-05 17:03] LABS: Alanine Aminotransferase 21 Units/L (7-52); Albumin 2.7 g/dL (3.5-5.7); Albumin/Globulin Ratio 0.8 (1.1-2.2); Alkaline Phosphatase 159 Units/L (34-104); Aspartate Amino Transferase 11 Units/L (13-39); BUN/Creatinine Ratio 44 (6-26); Bilirubin,Total 0.3 mg/dL (0.3-1.0); Blood Urea Nitrogen 42 mg/dL (8-23); Calcium 8.2 mg/dL (8.6-10.3); Carbon Dioxide 22 mEq/L (23-29); Chloride 113 mEq/L (98-107); Globulin 3.6 g/dL (2.4-3.5); Glucose 136 mg/dL (70-105); Osmolality,Calculated 301 (280-300); Potassium 4.7 mEq/L (3.5-5.1); Sodium 139 mEq/L (136-145); Total Protein 6.3 g/dL (6.4-8.9); eGFR For African Americans > 60 (> 60); eGFR For Non-African Americans > 60 (> 60)
[2022-03-06] MEDS: Insulin LISPRO 300 UNITS/3 ML VIAL SUBQ SCH ×3 (00:28→12:52)
[2022-03-06 02:25] LABS: Basophils % 0.3 %; Eosinophils # 0.2 K/mcL (0.0-0.6); Eosinophils % 5.8 %; Hematocrit 24.5 % (37.5-50.1); Hemoglobin 7.5 g/dL (12.9-16.9); Immature Granulocytes % 0.3 % (0-4); Lymphocytes # 0.7 K/mcL (0.6-4.6); Lymphocytes % 20.7 %; Mean Corpuscular HGB Conc 30.6 g/dL (31.6-35.5); Mean Corpuscular Hemoglobin 28.5 pg (28.0-33.3); Mean Corpuscular Volume 93.2 fL (83.0-100.0); Mean Platelet Volume 11.8 fL (9.4-12.4); Monocytes # 0.3 K/mcL (0.0-1.3); Monocytes % 7.6 %; Neutrophils # 2.2 K/mcL (1.6-8.9); Platelet Count 122 K/mcL (140-400); Red Blood Count 2.63 M/mcL (4.19-5.50); Red Cell Distribution Width 19.4 % (11.5-14.5); Segmented Neutrophils % 65.3 %; White Blood Count 3.4 K/mcL (4.3-11.1)
[2022-03-06 02:49] LABS: Alanine Aminotransferase 19 Units/L (7-52); Albumin 2.6 g/dL (3.5-5.7); Albumin/Globulin Ratio 0.8 (1.1-2.2); Alkaline Phosphatase 153 Units/L (34-104); Aspartate Amino Transferase 11 Units/L (13-39); BUN/Creatinine Ratio 46 (6-26); Bilirubin,Total 0.3 mg/dL (0.3-1.0); Blood Urea Nitrogen 42 mg/dL (8-23); Calcium 7.9 mg/dL (8.6-10.3); Carbon Dioxide 21 mEq/L (23-29); Chloride 114 mEq/L (98-107); Globulin 3.4 g/dL (2.4-3.5); Glucose 198 mg/dL (70-105); Osmolality,Calculated 304 (280-300); Potassium 4.6 mEq/L (3.5-5.1); Sodium 139 mEq/L (136-145); eGFR For African Americans > 60 (> 60); eGFR For Non-African Americans > 60 (> 60)
[2022-03-06] MEDS: allopurinoL 100 MG TABLET GTUBE SCH (09:20)
[2022-03-06] MEDS: carvediloL 25 MG TABLET GTUBE SCH (09:20)
[2022-03-06] MEDS: Ascorbic Acid 500 MG TABLET GTUBE SCH (09:20)
[2022-03-06] MEDS: cefTRIAXone 1,000 MG in 0.9 % Sodium Chloride 10 ML IVPB SCH (09:21)
[2022-03-06] MEDS: Nystatin POWDER 30 GM BOTTLE TP SCH (09:22)
[2022-03-06] MEDS: Pyridostigmine Br 60 MG TABLET GTUBE SCH ×2 (09:22→12:52)
[2022-03-06 11:58] VITALS: BP 120/42; PULSE 61; TEMP 97.6; O2SAT 93
== END 2022-03-06 16:26 | disposition home health service (06) | DRG 433 ==
LOC: EMEROOARM 11:00 → SUATTDRO 16:29 → 2NENU 16:29
PROVIDERS: ADMIT Internal Medicine; ATTEND Student in an Organized Health Care Education/Training Program